=== PATIENT | male | born 1965 | race African-American/Black ===

== ENCOUNTER 2018-12-03 06:31 | Inpatient (IN) ==
--- NOTE | 2018-10-26 09:44 | Anesthesiology Consultation ---
Date of Service October 26, 2018 Assessment & Plan (1) Encounter for pre-operative examination: Chart Review Chart Review: Acceptable Risk for Surgery (pending surgeon-ordered UA) and Patient NOT seen in Pre Admission Testing History Surgery Operation Date: 12/03/18 07:15 Proposed Procedures p Left Total Shoulder Arthroplasty, Possible Posterior Augmented Glenoid - Trenton Jimenez MD Height/Weight Height: 6 ft 4 in Weight: 133.356 kg Allergies Allergy/AdvReac Type Severity Reaction Status Date / Time aspirin AdvReac Mild VOMITTING Verified 10/21/18 10:09 Medications Home Medications Medication Instructions Recorded Confirmed Last Taken amlodipine 10 mg PO DAILY 10/21/18 10/21/18 Unknown atorvastatin 10 mg PO DAILY 10/21/18 10/21/18 Unknown diclofenac sodium 75 mg PO BID PRN 10/21/18 10/21/18 Unknown ranitidine HCl 150 mg PO BID 10/21/18 10/21/18 Unknown Past Medical History Medical History GERD (gastroesophageal reflux disease) Hyperlipidemia Hypertension Obesity Osteoarthritis Past Surgical History Surgical History History of total hip arthroplasty Social History Smoking Status: Current every day smoker tobacco type: cigarettes Smoking End Date: 10 CIGS DAILY Hx Alcohol Use: No Hx Substance Use: No Testing Electrocardiogram Date: 10/11/18 SR with first degree AVB at 65bpm. NS STA. Chest X-Ray Date: 10/06/18 Findings: + NAD Laboratory Results 10/11/18 WBC 8.14 H/H 15.1/46.0 PLATELETS 334 SODIUM 139 POTASSIUM 4.5 CHLORIDE 105 CO2 31 BUN 9 CREATININE 0.82 GLUCOSE 113 HGBA1C 6.4% PT 10.3 PTT 27.1 INR 0.99
--- NOTE | 2018-11-17 14:35 | History & Physical Report ---
Date of Service November 17, 2018 Assessment & Plan (1) Osteoarthritis of left shoulder: Patient has end stage arthritis of his left shoulder. He has tried and failed conservative measures as above. He would like to proceed with surgical intervention. Risks, benefits and alternatives to surgery including but not limited to infection, DVT, pain, stiffness, need for revision surgery, damage to blood vessels, damage to nerves, PE, , were discussed with the patient and they wish to proceed. Plan will be for left total shoulder arthroplasty with possible posterior augmented glenoid. All questions answered and reassurance given. He will f/u post operatively. Osteoarthritis type: primary Qualified Code(s): M19.012 - Primary osteoarthritis, left shoulder History of Present Illness Chief Complaint: Left shoulder pain Primary Care Provider: JACQUELINE Betsy Patient is a 53 year old male with PMHx significant for HTN, high cholesterol, GERD, PENNY who presents with chronic left shoulder pain. He has failed conservative measures including NSAIDs and cortisone injections. He has significnat osteoarthritis of his left shoulder. Treatment options were discussed and he would like to proceed with surgical intervention. Patient denies headaches, sweats, fevers, chills, double vision, blurred vision, cough, sore throat, dysphagia, chest pain, sob, wheezing, n/v/d/c, numbness, tingling, fatigue, urinary symptoms, mood disorders. ROS positive for left shoulder pain and stiffness. Allergies Allergy/AdvReac Type Severity Reaction Status Date / Time aspirin AdvReac Mild VOMITTING Verified 10/21/18 10:09 Home Medications Home Medications Medication Instructions Recorded Confirmed Type amlodipine 10 mg PO DAILY 10/21/18 10/21/18 History atorvastatin 10 mg PO DAILY 10/21/18 10/21/18 History diclofenac sodium 75 mg PO BID PRN 10/21/18 10/21/18 History ranitidine HCl 150 mg PO BID 10/21/18 10/21/18 History Past Med/Surg History Medical History GERD (gastroesophageal reflux disease) Hyperlipidemia Hypertension Obesity Osteoarthritis Surgical History History of total hip arthroplasty Social History Current Living Situation: Other Current Living Situation Comment: [facility] Smoking Status: Current every day smoker Tobacco Type: cigarettes Smoking End Date: 10 CIGS DAILY Hx Alcohol Use: No Hx Substance Use: No Review of Systems All systems reviewed & are unremarkable except as noted in HPI & below Physical Exam Vital Signs (Past 24 Hours): 6'3" 290lbs, BP 128/82 Constitutional: well developed and well nourished; no acute distress Eyes: PERRL, conjunctivae normal, anicteric sclerae ENMT: external ear and nose normal, oropharynx normal Neck: trachea midline, no thyromegaly Respiratory: normal respiratory effort, lungs clear to auscultation Cardiovascular: RRR, no murmur, no edema Chest (Breasts): normal inspection/palpation of breasts Musculoskeletal: Left shoulder: Painful ROM actively. ER to neutral, abduction 0-45 degrees, FF 0-60 degrees. Crepitus noted with ROM. N/V status and sensation intact. Skin: no rashes, warm and dry Neurologic: patellar DTR's 2+ bilat, sensation intact Psychiatric: A+Ox3, euthymic affect Results & Data Diagnostic Findings Left shoulder radiographs: Significant degenerative changes left shoulder with [id number] glenohumeral joint, osteophyte formation and subchondral sclerosis
[~2018-12-03 06:31] MED LIST: ACETAMINOPHEN 500 MG TAB PO SCH; CEFAZOLIN 3000MG 65 ML IV SCH; CeleBREX 200 MG CAP PO SCH; FAMOTIDINE 20 MG TAB PO SCH; GABAPENTIN 300 MG x 3 PO SCH; LR 15ML/HR IV SCH; dexAMETHasone 4 MG TAB PO SCH
[2018-12-03] MEDS ORDERED: ROPIVACAINE 0.5% 5 MG/ML 30 ML VIAL ONE (06:35)
[2018-12-03] MEDS ORDERED: DEXAMETHASONE SOD INJ 4 MG/ML VIAL ONE ×2 (06:35→08:08)
--- NOTE | 2018-12-03 07:15 | History & Physical Bridge Note ---
Date of Service December 03, 2018 History & Physical Bridge Note I have examined the patient, reviewed the History & Physical and in the interval since the performance of the History & Physical I have noted the following changes of clinical significance: no changes noted
[2018-12-03] MEDS ORDERED: fentaNYL citrate 100 MCG/2 ML VIAL ONE ×3 (08:00→11:58)
[2018-12-03] MEDS ORDERED: MIDAZOLAM HCL 1 MG/ML 2ML VIAL ONE ×2 (08:00→08:55)
[2018-12-03] MEDS ORDERED: KETAMINE HCL INJ 50 MG/ML 10 ML VIAL ONE (08:01)
[2018-12-03] MEDS ORDERED: ONDANSETRON INJ 2 MG/ML 2 ML VIAL ONE (08:08)
[2018-12-03] MEDS ORDERED: GLYCOPYRROLATE 0.2 MG/ML VIAL ONE (08:08)
[2018-12-03] MEDS ORDERED: PROPOFOL IV EMULSION 10 MG/ML 20 ML VIAL IV ONE (08:08)
[2018-12-03] MEDS ORDERED: LIDOCAINE HCL 2% 2 ML VIAL/AMP(20MG/ML) INFIL ONE (08:08)
[2018-12-03] MEDS ORDERED: ROCURONIUM BROMIDE 10 MG/ML 5 ML VIAL ONE (08:08)
[2018-12-03] MEDS ORDERED: ePHEDrine sulfate 50 MG/ML AMP IV PRN (08:53)
[2018-12-03] MEDS ORDERED: ATROPINE SULFATE 0.1 MG/ML 10ML SYR IV PRN (08:53)
[2018-12-03] MEDS ORDERED: LIDOCAINE HCL 2% MPF (LOCAL) 5 ML VIAL INFIL ONE (08:55)
[2018-12-03] MEDS ORDERED: VANCOMYCIN HCL 1000MG/20ML VIAL ONE (09:18)
[2018-12-03] MEDS ORDERED: POVIDONE-IODINE OP SOLN 30 ML BTL ONE (09:18)
[2018-12-03] MEDS ORDERED: BACITRACIN INJ 50,000 UNIT VIAL ONE (09:18)
[2018-12-03] MEDS ORDERED: ROPIVACAINE 0.5% HCL/PF 150 MG, BUPIVACAINE 0.5% MPF 30 ML, EPINEPHrine 30MG/30ML (OR U... INFIL SCH (10:15)
[2018-12-03] MEDS ORDERED: EPINEPHrine HCL INJ 1 MG/ML 30ML ONE (11:36)
--- NOTE | 2018-12-03 12:40 | Operative Report ---
Post Operative Report Pre & Post Diagnosis Operation Date: 12/03/18 08:55 Pre-Op Diagnosis: Primary Osteoarthritis, Left shoulder Post-Op Diagnosis: Primary Osteoarthritis, Left shoulder same plus tear long head biceps tendon Procedure Operation Date: 12/03/18 08:55 Actual Procedures p Left Total Shoulder Arthroplasty with posterior augmented glenoid(Left), biceps tenodesis- Trenton Jimenez MD Surgeon Trenton Jimenez MD Cupola Man Te Gonzalez PA-C Estimated Blood Loss 100 Findings Consistent with Post-Op Diagnosis Specimens Bone and tissue Anesthesia Type General Regional Complications none Disposition Accompanied Patient To Recovery: No Disposition: Recovery Room Indications The patient is a 53-year-old male long-standing arthritic change in the left shoulder. Is [id number] glenohumeral joint with significant posterior eccentric wear. He is failed conservative measures including cortisone injection, nonsteroidal anti-inflammatories, rehab. We discussed various treatment measures and he wishes to proceed total shoulder arthroplasty. Description of Procedure Risks, benefits and alternatives to surgery including, but not limited to, infection DVT, pain, stiffness, need for revision surgery, failure to relieve all symptoms, damage to blood vessels, damage to nerves, risk of anesthesia were discussed with the patient and they wished to proceed. The patient was identified. Laterality was confirmed and marked. The patient received a preoperative antibiotic as well as an interscalene block. They were transferred to the operating room and placed in the supine position and induced into general endotracheal anesthesia per the anesthesia staff. The patient was then safely transferred to a slight beachchair position. The patient was secured in the Tenet positioner. All pressure points were well padded. The shoulder was prepped and draped in the usual sterile manner with ChloraPrep. The arm was secured in the Spider swann. I made a longitudinal incision just lateral to the coracoid, sharply incising through the skin and utilizing Bovie electrocautery to achieve hemostasis. I identified the cephalic vein and mobilized it laterally with the deltoid. I mobilize the pectoralis and mobilize this medially releasing a small portion of the upper border of the pec tendon to improve visualization. I then identified and mobilized the conjoined tendon. I identified the long head of the biceps tendon. The long head of the biceps tendon had significant tendinosis and tearing proximally. I performed an in situ biceps tenodesis with interrupted #2 FiberWire suture. I then released the subscapularis. I tagged this with interrupted 0 Ethibond suture for later repair. I pinned into place my humeral head version cutting guide and made my humeral head resection. Inferior osteophytes were removed with a rongeur. There were several loose bodies within the biceps tendon sheath that were removed. There was also a osseous body within the substance of the subscapularis medial to the coracoid. This was shelled out utilizing combination dissection sutures and Bovie. I then sequentially reamed and sequentially broached. I then placed the trial humeral stem into the shoulder. I placed retractors around the glenoid and then excised the residual biceps tendon stump and glenoid labrum. I elevated the soft tissues and the inferior aspect of the glenoid to improve exposure and released tissues circumferentially. There were several loose bodies posteriorly that were removed. I then positioned and drilled for the central post. I then drilled for the 3 peripheral pegs. I placed a trial glenoid into position and confirmed the size of the implant. I then placed epinephrine-soaked sponges into the peg holes. The central caged post was bone grafted with bone taken from the humeral head. The peripheral peg holes were cemented with Palacos G cement. The definitive polyethylene was then impacted into place. I then removed the trial humeral stem . I then drilled holes in my subscapularis repair. I placed a total of 3 #2 FiberWire sutures through the drill holes and placed them in a looped fashion around the stem. I then placed the definitive humeral stem. I trialed off of the definitive stem. The definitive components used were [employer] Equinox: Preserved short humeral press-fit stem: 10 Glenoid: Extra-large left with 8 degree posterior augmentation Replicator plate: 4.5 Humeral head: 50 mm expanded I thoroughly irrigated the wound. Deep tissues were anesthetized with an orthomix solution. I then locked replicator plate into position with a torque limiting screw. I then impacted the definitive humeral head into position. I then reduced the shoulder. There was good range of motion and good stability after the reduction. I used the #2 FiberWire suture for a medial row repair of the subscapularis. I then performed a lateral row repair with a running #5 FiberWire suture. The rotator interval was closed with interrupted #2 FiberWire suture. The wound was again thoroughly irrigated and a Betadine soak was performed. The deltopectoral interval was closed with interrupted #1 Ethibond suture. The subcutaneous tissue was closed with interrupted 2-0 Vicryl suture. The skin was closed with clarence. A sterile dressing was applied. A sling was placed. All needle and sponge counts were correct at the end of the procedure. The patient was transferred to the PACU in stable condition without apparent complication. The PA-C was necessary for assistance with procedure for assistance in positioning, prepping, draping, retraction and closure. I attest to the content of the Intraoperative Record and any orders documented therein. Any exceptions are noted below.
--- NOTE | 2018-12-03 14:05 | XRay Report ---
XR shoulder LT min 2V routine HISTORY: 53 years-old Male Post shoulder surgery left shoulder arthroplasty COMPARISON: None available TECHNIQUE: 2 views of the left shoulder FINDINGS: Left shoulder arthroplasty demonstrates satisfactory alignment. No acute fracture, dislocation or ret ained foreign body definitively seen. Overlying skin clarence are noted along with expected postsurgic al soft tissue swelling and deep tissue air. Left lung base opacities are noted. IMPRESSION: Satisfactory alignment of left shoulder arthroplasty. The above report was generated using voice recognition software. It may contain grammatical, syntax o r spelling errors. Electronically signed by: Edu Guo M.D. 12/03/2018 2:04 PM
--- NOTE | 2018-12-03 14:48 | Anesthesiology Progress Note ---
Date of Service December 03, 2018 Anesthesia Post Procedure Vital Signs Vital Signs: Temp Pulse Resp BP Pulse Ox 12/03/18 14:35 88 23 151/90 H 94 12/03/18 14:26 91 H 25 H 148/84 H 96 12/03/18 14:15 91 H 23 130/86 94 12/03/18 14:05 100 H 23 157/96 H 96 12/03/18 13:55 99 H 23 130/87 93 12/03/18 13:45 82 23 123/92 92 12/03/18 13:35 81 23 127/79 94 12/03/18 13:25 80 21 105/79 94 12/03/18 13:15 36.5 C 83 23 112/75 94 12/03/18 06:56 36.7 C 78 20 145/94 H 97 Pain Intensity Left Shoulder: Pain Intensity: 10 Transfer of Care Handoff Completed per policy Notes Mental Status: alert / awake / arousable and participated in evaluation Patient Amnestic to Procedure: Yes Nausea / Vomiting: adequately controlled Pain: adequately controlled Airway Patency, RR, SpO2: stable & adequate BP & HR: stable & adequate Hydration State: stable & adequate Anesthetic Complications: no major complications apparent
[2018-12-03] MEDS ORDERED: BISACODYL 10 MG SUPP PR PRN (15:32)
[2018-12-03] MEDS ORDERED: NALOXONE HCL 0.4 MG/1 ML VIAL/CARP IV PRN (15:32)
[2018-12-03] MEDS ORDERED: TAMSULOSIN HCL 0.4 MG CAP PO PRN (15:32)
[2018-12-03] MEDS ORDERED: MAGNESIUM HYDROXIDE SUSP 30 ML UDC PO PRN (15:32)
[2018-12-03] MEDS ORDERED: ONDANSETRON INJ 2 MG/ML 2 ML VIAL IV PRN (15:32)
[2018-12-03] MEDS ORDERED: METOCLOPRAMIDE HCL INJ 5 MG/ML 2 ML VIAL IV PRN (15:32)
[2018-12-03] MEDS: ACETAMINOPHEN 500 MG TAB PO SCH ×2 (16:20→21:19)
[2018-12-03] MEDS: SODIUM CHLORIDE 0.9% 1000ML 1,000 ML IV SCH (16:21)
[2018-12-03] MEDS: CEFAZOLIN 2000MG 2,000 MG/15 ML SYR IV SCH (18:15)
[2018-12-03] MEDS: OXYCODONE HCL IR 5 MG TAB (IMMEDIATE RELEASE) PO PRN (21:16)
[2018-12-03] MEDS: DOCUSATE SODIUM 100 MG CAP PO SCH (21:19)
[2018-12-03] MEDS: SENNA 8.6 MG TAB PO SCH (21:19)
[2018-12-03] MEDS: HYDROmorphone INJ 0.5 MG/0.5 ML SYR IV PRN (23:12)
[2018-12-04] MEDS: CEFAZOLIN 2000MG 2,000 MG/15 ML SYR IV SCH (01:49)
[2018-12-04] MEDS: SODIUM CHLORIDE 0.9% 1000ML 1,000 ML IV SCH (01:49)
[2018-12-04] MEDS: OXYCODONE HCL IR 5 MG TAB (IMMEDIATE RELEASE) PO PRN ×5 (03:36→22:42)
[2018-12-04] MEDS: ACETAMINOPHEN 500 MG TAB PO SCH ×3 (05:49→20:39)
[2018-12-04] MEDS: HYDROmorphone INJ 0.5 MG/0.5 ML SYR IV PRN ×5 (05:50→23:35)
[2018-12-04 06:15] LABS: Hematocrit (blood only) 40.3 % (42-52); Hemoglobin 13.2 g/dL (14.0-18.0); Immature Granulocytes # (auto) 0.05 K/uL (0.00-0.02); Immature Granulocytes % (auto) 0.3 %; Lymphocytes # (auto) 1.27 K/uL (1.2-3.4); Lymphocytes % (auto) 7.4 %; Mean Corpuscular Hgb Conc 32.8 g/dL (32-36); Mean Corpuscular Volume 91.8 fL (80-100); Mean Platelet Volume 10.3 fL (7.4-10.4); Monocytes # (auto) 1.18 K/uL (0.11-0.59); Monocytes % (auto) 6.9 %; Neutrophils # (auto) 14.59 K/uL (1.4-6.5); Neutrophils % (auto) 85.4 %; Platelet Count 283 K/uL (130-400); RDW Coefficient of Variation 13.1 % (11.5-14.5); RDW Standard Deviation 44.2 fL (36.4-46.3); Red Blood Count 4.39 M/uL (4.7-6.1); White Blood Count 17.09 K/uL (4.8-10.8)
[2018-12-04 06:38] LABS: BUN Creatinine Ratio 14.8 (10-20); Creatinine Clr Calc Pharmacy 126.3 ml/min; Est GFR (African American) 97.5; Est GFR (Non-African American) 84.1; Potassium 4.8 mmol/L (3.5-5.1)
--- NOTE | 2018-12-04 08:57 | Orthopedic Progress Note ---
Date of Service December 04, 2018 Assessment & Plan (1) Osteoarthritis of left shoulder: PT/OT Pain control Plan for [facility] to [facility]. Subjective POD#1 Left TSA. He notes pain today. Review of Systems Cardiovascular: no chest pain, no dyspnea, no lightheadedness and no calf pain Physical Exam Physical Exam: Digits mobile, NVI. Calves soft, non tender. Dressing in place to left shoulder. Incision clean dry intact Results & Data Vital Signs (Past 12 Hours) Vital Signs Temp Pulse Resp BP Pulse Ox 12/04/18 07:00 36.7 C 74 16 135/79 95 12/04/18 03:30 36.8 C 83 18 149/72 H 93 12/03/18 23:00 36.9 C 90 18 138/81 95 (1) Osteoarthritis of left shoulder Osteoarthritis type: primary Qualified Code(s): M19.012 - Primary osteoarthritis, left shoulder
--- NOTE | 2018-12-04 10:05 | Consultation ---
Date of Consultation December 04, 2018 Assessment & Plan (1) Chest pain: - Admitted under orthopedics team - Multiple cardiac risk factors including HTN, HLD, current tobacco use, obesity make him a higher risk patient. It would be appropriate to keep the patient overnight and rule out cardiac involvement. - Transfer to tele - Trend cardiac biomarkers, initial set was negative, next set due at 2 PM - EKG reviewed as above showing possible T wave changes in the lateral leads. EKG from October reviewed but does not appear to have had ST wave changes at that time. - Check 2 D echo - If negative enzymes can consider a stress test tomorrow morning. - Patient is not on form of anticoagulation s/p surgery: Order CTA chest for PE r/o, continuous pulse ox for now as he is currently on 2 L of O2. Patient denies any significant shortness of breath. But he has not been up ambulating due to shackles attached to bed. - Nitro paste as pt not currently cp free, BP stable - c/o lightheadedness may be secondary to narcotic use, monitor. - PT/OT consulted (2) HTN (hypertension): - Cont amlodipine 10 mg daily (3) HLD (hyperlipidemia): - Cont atorvastatin 10 mg daily (4) Osteoarthritis of left shoulder: - S/p L shoulder repair, POD #1 - pain control, bowel regimen per primary team (5) Osteoarthritis of right hip: -Stable, hx of total right hip replacement 2 years ago. (6) Obesity (BMI 30-39.9): - Diet and exercise regimen will need to be discussed with the patient upon discharge. Encouraged more active lifestyle at bedside. (7) Tobacco use: -Patient has used tobacco x20 years, currently smoking ~1/2 pack/day. On January 10, [facility] is making their facility and no smoking facility. (8) DVT prophylaxis: -Teds, SCDs Thank you for involving medicine in the care of Mr. Cabral, we will follow along. Supervising Physician Co-Signing Physician Notes PA Supervision Note: I personally saw and examined the patient. I verified all banegas points and agree with ADAM To with the following exceptions and/or additions: Patient is postop day 1 from left shoulder surgery, had substernal chest achiness there was initially an 8 out of 10 in severity and then on its own went down to a 6 out of 10. It is nonradiating, not associated with diaphoresis or nausea, no associated shortness of breath. He was at rest when it came on. He is also having severe left shoulder pain and states that the pain medicine he is on is not helping. He has no history of cardiac issues but does have risk factors of smoking hypertension as above. He also just had surgery. He denies calf tenderness or swelling. No previous history of venous thromboembolism. I came back to check on him 4 hours later and he was still having the same chest pain despite serially negative troponins and normal studies as below History reviewed as above ROS as above Vitals reviewed Gen: AAOx3, NAD, well-developed, well-nourished, obese HEENT: Anicteric sclerae, EOMI CV: RRR no mgr nl S1S2, chest/sternum is nontender to palpation Pulm: CTAB no wcr Abd: +BS soft NT ND no masses or hernias Ext: No edema, 2+ DP pulses, left upper extremity in sling with bulky dressing in place over left shoulder Skin: No rashes Echocardiogram without wall motion of normalities, normal LVEF ECG here shows normal sinus rhythm, lateral leads with flattened T waves not significantly changed from previous preoperative ECG CT angiogram of the chest negative for pulmonary embolism or pneumonia-read with small left basilar infiltrate but is likely atelectasis Troponin negative x2, CBC and BMP otherwise within normal limits except for mildly elevated blood glucose likely from corticosteroids 53-year-old male with history of hypertension, hyperlipidemia, OA, current smoker, obesity, here status post shoulder surgery, now postop day 1, here with atypical substernal chest pain. Acute coronary syndrome is ruled out at this time based on serially negative enzymes despite constant pain now all day long, echo without wall motion abnormalities PE ruled out Likely musculoskeletal or GI in nature -Add on Protonix to his ranitidine twice daily -Increase Dilaudid to 1 mg as needed for pain which will also help his left shoulder pain Continue monitoring on telemetry -Can discontinue Nitropaste at this time -Continue to follow History of Present Illness Requesting Physician: Dr. Jimenez Reason for Consultation: Chest pain Attending Physician: Trenton Jimenez MD History of Present Illness This is a 53 yo incarcerated M with PMHx of HTN, HLD, smoking 1/2 ppd x 20 years, obesity with BMI of 35.8, sedentary lifestyle due to chronic hip and shoulder pain, who presented for an elective left total shoulder replacement completed by Dr. Jimenez on 12/03/2018. The patient reports that his shoulder pain today has been rated as a 10/10. He has taken as needed oxycodone and Dilaudid today for pain control, his last dose of oxycodone was 10 mg p.o. at ~8 AM, Dilaudid 0.5 mg IV was taken at 5:50AM. The patient reported onset of intermittent lightheadedness between 8 and 9 AM. Patient also reported acute onset of substernal heaviness this morning while sitting in bed. He has only been up ambulating to urinate once around 6 AM. The patient reports that the pain was initially rated as an 8, has since subsided to approximately a 5 or 6 but is still present. He denies any history of having heart issues in the past. Denies other family history of cardiac events, HTN, HLD, diabetes, stroke. Initial troponin drawn and is negative. EKG today was reviewed showing a possible T wave inversion in the lateral leads. His last EKG was from October 11, 2018 and was NSR with a first-degree AV block however no ST wave changes. Allergies Allergy/AdvReac Type Severity Reaction Status Date / Time aspirin AdvReac Mild VOMITTING Verified 10/21/18 10:09 Home Medications Home Medications Medication Instructions Recorded Confirmed Type amlodipine 10 mg PO DAILY 10/21/18 10/21/18 History atorvastatin 10 mg PO DAILY 10/21/18 10/21/18 History diclofenac sodium 75 mg PO BID PRN 10/21/18 10/21/18 History ranitidine HCl 150 mg PO BID 10/21/18 10/21/18 History Patient History Medical History Tobacco use Obesity (BMI 30-39.9) HLD (hyperlipidemia) HTN (hypertension) Chest pain Osteoarthritis of left shoulder Osteoarthritis of right hip GERD (gastroesophageal reflux disease) Hyperlipidemia Hypertension Osteoarthritis Obesity Surgical History History of total hip arthroplasty Family History Other Family history non-contributory Social History Communication Ability: Effective 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 Beliefs That Will Affect Care: None Current Living Situation: Other Current Living Situation Comment: inmate Feels Safe at Home: No Smoking Status: Current every day smoker Tobacco Type: cigarettes Cigarettes Per Day: 5 Do You Dip or Chew Tobacco: No Smoking End Date: 10 CIGS DAILY Hx Alcohol Use: Yes (formerly) Alcohol type: beer Hx Substance Use: Yes substance use type: marijuana Last Used Substance: Unknown Review of Systems Review of Systems: Constitutional: No fever, sweats or chills, + lightheadedness Eyes: No diplopia, no worsening or blurred vision ENT: normal hearing, no trouble swallowing Respiratory: No cough, sputum, dyspnea at rest or on exertion Cardiovascular: + substernal heaviness per HPI. No radiation of pain. No palpitations Abdomen: No pain, nausea, vomiting, diarrhea or constipation Musculoskeletal: + L shoulder pain, no other joint pain, calf pain, or swelling Neurologic: No weakness, numbness/tingling, or balance problems Psychiatric: No anxiety or depression Skin: No rash or itch Physical Exam Physical Exam: General: awake, alert, no apparent distress, Head: Normocephalic, atraumatic ENT: PERRL, EOMI, no pharyngeal exudate, mucous membranes moist Chest: on 2L via NC with sats = 97%, faint expiratory wheeze, left chest wall not palpated due to shoulder surgery, nonreproducible on right. Cardiac: Regular rate and rhythm, no murmur, no JVD, normal peripheral pulses, good capillary refill Abdominal: NABS x 4 quadrants, soft, nontender to palpation, no rebound, guarding or tenderness Extremities: L shoulder bandage c/d/i, in sling, no surrounding erythema or edema, Otherwise normal inspection, no peripheral edema or erythema, calfs nontender to palpation Psych: Normal mood and affect Neuro: AAO x 3, no motor deficits, speech is clear, no peripheral sensory deficits Results & Data Vital Signs (Past 12 Hours) Vital Signs Temp Pulse Resp BP Pulse Ox 12/04/18 09:01 91 H 20 157/94 H 97 12/04/18 07:00 36.7 C 74 16 135/79 95 12/04/18 03:30 36.8 C 83 18 149/72 H 93 12/03/18 23:00 36.9 C 90 18 138/81 95 (1) Osteoarthritis of left shoulder Osteoarthritis type: primary Qualified Code(s): M19.012 - Primary osteoarthritis, left shoulder
[2018-12-04] MEDS: AMLODIPINE BESYLATE 5 MG TAB PO SCH (10:19)
[2018-12-04] MEDS: ATORVASTATIN 10 MG TAB PO SCH (10:20)
[2018-12-04] MEDS: DOCUSATE SODIUM 100 MG CAP PO SCH ×2 (10:21→20:39)
[2018-12-04] MEDS: MULTIVITAMIN TAB PO SCH (10:21)
--- NOTE | 2018-12-04 11:30 | Anesthesiology Progress Note ---
Date of Service December 04, 2018 Anesthesia Post Procedure Vital Signs Vital Signs: Temp Pulse Resp BP Pulse Ox 12/04/18 09:01 91 H 20 157/94 H 97 12/04/18 07:00 36.7 C 74 16 135/79 95 12/04/18 03:30 36.8 C 83 18 149/72 H 93 12/03/18 23:00 36.9 C 90 18 138/81 95 12/03/18 20:53 36.7 C 91 H 16 141/76 H 94 12/03/18 18:12 36.9 C 87 16 145/80 H 95 12/03/18 17:14 36.7 C 91 H 16 157/118 H 94 12/03/18 16:18 36.7 C 88 16 138/78 95 12/03/18 15:28 36.7 C 100 H 16 145/78 H 95 12/03/18 15:15 36.7 C 95 H 20 141/86 H 93 12/03/18 15:07 90 24 128/81 94 12/03/18 14:55 90 24 140/89 94 12/03/18 14:47 91 H 25 H 121/84 94 12/03/18 14:35 88 23 151/90 H 94 12/03/18 14:26 91 H 25 H 148/84 H 96 12/03/18 14:15 91 H 23 130/86 94 12/03/18 14:05 100 H 23 157/96 H 96 12/03/18 13:55 99 H 23 130/87 93 12/03/18 13:45 82 23 123/92 92 12/03/18 13:35 81 23 127/79 94 12/03/18 13:25 80 21 105/79 94 12/03/18 13:15 36.5 C 83 23 112/75 94 Pain Intensity Left Shoulder: Pain Intensity: 10 Transfer of Care Handoff Completed per policy Notes Mental Status: alert / awake / arousable and participated in evaluation Patient Amnestic to Procedure: Yes Nausea / Vomiting: adequately controlled Pain: improving with treatment (pt reports pain, does not exhibit signs of pain, appears comfortable in bed, reports numbness in left upper extremity) Airway Patency, RR, SpO2: stable & adequate BP & HR: stable & adequate Hydration State: stable & adequate Anesthetic Complications: no major complications apparent
[2018-12-04] MEDS ORDERED: OPTIRAY 320 125ml IV PRN (11:58)
[2018-12-04] MEDS ORDERED: NITROGLYCERIN 2% OINTMENT 30GM TUBE EXT SCH (12:00)
--- NOTE | 2018-12-04 12:08 | CT Scan Report ---
CT angio chest PE protocol CT DOSE: 959.42 mGy.cm HISTORY: Chest pain. Dyspnea. PE TECHNIQUE: Multiaxial CT images of the chest were performed following the intravenous administration of contrast to evaluate the pulmonary arteries. Maximal intensity projection images were also obtaine d. A dose lowering technique was utilized adhering to the principles of ALARA. COMPARISON STUDY: None. FINDINGS: There is a normal caliber thoracic aorta with no evidence for dissection. There is no evide nce for pulmonary embolus. No pleural effusions. No pneumothorax. The liver and spleen are unremarkab le. No mediastinal or hilar lymphadenopathy. The central airways are patent. Focal parenchymal infilt rate left base. Mild right basilar atelectasis. IMPRESSION: 1. Study is negative for pulmonary embolus. 2. Small parenchymal infiltrate left base. 3. Minimal basilar atelectasis right lung base. 4. Postoperative changes to the region of the left shoulder due to recent total arthroplasty. The above report was generated using voice recognition software. It may contain grammatical, syntax or spelling errors. Electronically signed by: Frank Doyle M.D. 12/04/2018 12:05 PM
[2018-12-04] MEDS ORDERED: PANTOprazole 40 MG TAB PO STA (17:29)
[2018-12-04] MEDS: SENNA 8.6 MG TAB PO SCH (20:39)
[2018-12-05] MEDS: HYDROmorphone INJ 0.5 MG/0.5 ML SYR IV PRN ×3 (03:34→11:35)
[2018-12-05] MEDS: ACETAMINOPHEN 500 MG TAB PO SCH ×3 (06:17→21:30)
[2018-12-05 07:17] LABS: Basophils # (auto) 0.05 K/uL (0-0.2); Basophils % (auto) 0.4 %; Eosinophils # (auto) 0.12 K/uL (0-0.5); Hemoglobin 12.5 g/dL (14.0-18.0); Immature Granulocytes # (auto) 0.03 K/uL (0.00-0.02); Immature Granulocytes % (auto) 0.2 %; Lymphocytes # (auto) 3.22 K/uL (1.2-3.4); Lymphocytes % (auto) 26.3 %; Mean Corpuscular Hgb Conc 33.8 g/dL (32-36); Mean Corpuscular Volume 90.2 fL (80-100); Mean Platelet Volume 9.4 fL (7.4-10.4); Monocytes % (auto) 7.3 %; Neutrophils # (auto) 7.93 K/uL (1.4-6.5); Neutrophils % (auto) 64.8 %; Platelet Count 255 K/uL (130-400); RDW Coefficient of Variation 13.4 % (11.5-14.5); RDW Standard Deviation 44.4 fL (36.4-46.3); White Blood Count 12.25 K/uL (4.8-10.8)
[2018-12-05] MEDS: MULTIVITAMIN TAB PO SCH (07:34)
[2018-12-05] MEDS: DOCUSATE SODIUM 100 MG CAP PO SCH ×2 (07:35→21:31)
[2018-12-05] MEDS: AMLODIPINE BESYLATE 5 MG TAB PO SCH (07:35)
[2018-12-05] MEDS: ATORVASTATIN 10 MG TAB PO SCH (07:35)
[2018-12-05] MEDS: PANTOprazole 40 MG TAB PO SCH (07:35)
[2018-12-05 07:59] LABS: BUN Creatinine Ratio 15.4 (10-20); Calcium 8.4 mg/dl (8.5-10.1); Creatinine Clr Calc Pharmacy 175.3 ml/min; Est GFR (African American) 122.2; Est GFR (Non-African American) 105.5; Potassium 3.6 mmol/L (3.5-5.1)
--- NOTE | 2018-12-05 11:55 | Orthopedic Progress Note ---
Date of Service December 05, 2018 Assessment & Plan (1) Osteoarthritis of left shoulder: Will plan for [facility] back to [facility] when cleared with medicine regarding chest pain. PT/OT Pain control: has dilaudid per medicine for pain control Subjective patient notes chest pain is improving. He still has some. Physical Exam Physical Exam: left shoulder dressing clean dry intact. Fingers mobile. NVI Results & Data Vital Signs (Past 12 Hours) Vital Signs Temp Pulse Pulse Resp BP Pulse Ox 12/05/18 08:15 36.7 C 77 20 143/91 H 91 12/05/18 07:59 75 12/05/18 04:37 36.6 C 76 18 145/88 H 90 (1) Osteoarthritis of left shoulder Osteoarthritis type: primary Qualified Code(s): M19.012 - Primary osteoar thritis, left shoulder
[2018-12-05] MEDS ORDERED: KETOROLAC 30 MG/ML VIAL IV ONE (13:01)
[2018-12-05] MEDS ORDERED: KETOROLAC 30 MG/ML VIAL IV PRN (13:01)
--- NOTE | 2018-12-05 13:03 | Hospitalist Progress Note ---
Date of Service December 05, 2018 Assessment & Plan (1) Chest pain: 53-year-old male with history of hypertension, hyperlipidemia, OA, current smoker, obesity, here status post shoulder surgery. Developed atypical chest pain on AM of 12/04 that was substernal, achy in nature,initially an 8 out of 10 in severity and then on its own went down to a 6 out of 10. It is nonradiating, not associated with diaphoresis or nausea, no associated shortness of breath. He was at rest when it came on. Chest pain now resolved with addition of protonix. He has no history of cardiac issues but does have risk factors of smoking hypertension as above. He denies calf tenderness or swelling. No previous history of venous thromboembolism. Echocardiogram without wall motion of normalities, normal LVEF ECG here shows normal sinus rhythm, lateral leads with flattened T waves not significantly changed from previous preoperative ECG CT angiogram of the chest negative for pulmonary embolism or pneumonia-read with small left basilar infiltrate but is likely atelectasis Troponin negative x3, CBC and BMP otherwise within normal limits except for mildly elevated blood glucose likely from corticosteroids Acute coronary syndrome is ruled out at this time based on serially negative enzymes despite constant pain all day long, echo without wall motion abnormalities PE ruled out Likely musculoskeletal or GI in nature. Now resolved with PPI -continue Protonix added to his ranitidine twice daily for while inpatient -no further workup or stress test necessary (2) HTN (hypertension): Blood pressures acceptable - Cont amlodipine 10 mg daily (3) HLD (hyperlipidemia): - Cont atorvastatin 10 mg daily (4) Osteoarthritis of left shoulder: - S/p L shoulder repair, POD #2 - pain control-add toradol today, increase frequency of IV dilaudid to q3 hours Of note, he will not be able to get any opioids for pain when he returns to the [facility]-only acetaminophen and NSAIDs-therefore, made recommendation to Ortho PA to keep him for another day for improved pain control prior to discharge -continue bowel regimen (5) Osteoarthritis of right hip: -Stable, hx of total right hip replacement 2 years ago. (6) Obesity (BMI 30-39.9): - Diet and exercise regimen will need to be discussed with the patient upon discharge. Encouraged more active lifestyle at bedside. (7) Tobacco use: -Patient has used tobacco x20 years, currently smoking ~1/2 pack/day. On January 10, [facility] is making their facility and no smoking facility. (8) Lightheadedness: pt continues to report lightheadedness that is worse with walking. Studies all negative as above. Orthostatic BPs here actually show BP to go higher with standing. No focal neuro deficits Hgb without significant drop, lytes and renal function normal Most likely secondary to side effect from opioid medication -supportive care -no further testing needed (9) DVT prophylaxis: -Teds, SCDs, would add Lovenox as is not very mobile given he is handcuffed to the bed Dispo-stable for transfer to medical/surgical floor, likely dc to [facility] tomorrow as per Ortho team Hospitalist service will sign off at this time as pt is medically stable. Subjective Pt reports chest pain is completely gone. Still feeling lightheaded and "woozy" with standing up. Orthostatics negative. Feels like O2 helps him feel better. Not hypoxic. Still reports having 10/10 pain in his left shoulder and Dilaudid q4 hours is not lasting long enough. Reports he has not received ice to his shoulder since yesterday. He is eating and drinking, making urine, but has not moved his bowels since surgery. Tele with NSR, 1st degree AV block, rates 60-70s. I discussed his case with the Ortho PA Linnea today. Review of Systems Review of Systems: All systems reviewed & are unremarkable except as noted in HPI & below Physical Exam Constitutional: WD/WN, vitals as above Eyes: PERRL, conjunctivae normal, anicteric sclerae ENMT: external ear and nose normal, oropharynx normal Neck: trachea midline, no thyromegaly Respiratory: normal respiratory effort, lungs clear to auscultation Cardiovascular: RRR, no murmur, no edema Gastrointestinal (Abdomen): normal bowel sounds, soft, nontender, no hepatosplenomegaly Musculoskeletal: Extremities: + extremities abnormal to inspection (LUE in shoulder sling), no cyanosis and no clubbing Skin: no rashes, warm and dry Neurologic: moves all extremities and awake; no focal motor deficits Psychiatric: A+Ox3, euthymic affect Results & Data Vital Signs (Past 12 Hours) Vital Signs Temp Pulse Pulse Resp BP Pulse Ox 12/05/18 08:15 36.7 C 77 20 143/91 H 91 05/26/19 07:59 75 12/05/18 04:37 36.6 C 76 18 145/88 H 90 Laboratory Results 12/05/18 12/05/18 Range/Units 07:06 07:06 WBC 12.25 H (4.8-10.8) K/uL RBC 4.10 L (4.7-6.1) M/uL Hgb 12.5 L (14.0-18.0) g/dL Hct 37.0 L (42-52) % MCV 90.2 (80-100) fL MCH 30.5 (25-34) pg MCHC 33.8 (32-36) g/dL RDW Std Deviation 44.4 (36.4-46.3) fL RDW Coeff of Rudolph 13.4 (11.5-14.5) % Plt Count 255 (130-400) K/uL MPV 9.4 (7.4-10.4) fL Immature Gran % (Auto) 0.2 % Neut % (Auto) 64.8 % Lymph % (Auto) 26.3 % [place] % (Auto) 7.3 % Eos % (Auto) 1.0 % Baso % (Auto) 0.4 % Immature Gran # (Auto) 0.03 H (0.00-0.02) K/uL Neut # (Auto) 7.93 H (1.4-6.5) K/uL Lymph # (Auto) 3.22 (1.2-3.4) K/uL [place] # (Auto) 0.90 H (0.11-0.59) K/uL Eos # (Auto) 0.12 (0-0.5) K/uL Baso # (Auto) 0.05 (0-0.2) K/uL Sodium 137 (136-145) mmol/L Potassium 3.6 D (3.5-5.1) mmol/L Chloride 104 (98-107) mmol/L Carbon Dioxide 28 (21-32) mmol/L Anion Gap 5.0 (3-11) BUN 12 (7-18) mg/dl Creatinine 0.75 (0.6-1.4) mg/dl Est Cr Clr Drug Dosing 175.3 ml/min Est GFR ( Amer) 122.2 Est GFR (Non-Af Amer) 105.5 BUN/Creatinine Ratio 15.4 (10-20) Glucose 139 H (70-99) mg/dl Calcium 8.4 L (8.5-10.1) mg/dl (1) Osteoarthritis of left shoulder Osteoarthritis type: primary Qualified Code(s): M19.012 - Primary osteoarthritis, left shoulder
[2018-12-05] MEDS: HYDROmorphone INJ 1 MG/ML SYRINGE IV PRN ×3 (15:23→21:24)
[2018-12-05] MEDS: SENNA 8.6 MG TAB PO SCH (21:29)
[2018-12-06] MEDS: OXYCODONE HCL IR 5 MG TAB (IMMEDIATE RELEASE) PO PRN ×3 (00:15→10:46)
[2018-12-06 06:24] LABS: Prothrombin Time 9.9 Seconds (9.0-12.0)
[2018-12-06] MEDS: ACETAMINOPHEN 500 MG TAB PO SCH (06:28)
[2018-12-06] MEDS: HYDROmorphone INJ 1 MG/ML SYRINGE IV PRN (08:29)
[2018-12-06] MEDS: DOCUSATE SODIUM 100 MG CAP PO SCH (08:32)
[2018-12-06] MEDS: MULTIVITAMIN TAB PO SCH (08:33)
[2018-12-06] MEDS: ATORVASTATIN 10 MG TAB PO SCH (08:33)
[2018-12-06] MEDS: AMLODIPINE BESYLATE 5 MG TAB PO SCH (08:33)
[2018-12-06] MEDS: PANTOprazole 40 MG TAB PO SCH (08:34)
[2018-12-06] MEDS ORDERED: ENOXAPARIN INJ 40 MG/0.4 ML SYR SQ SCH (09:00)
--- NOTE | 2018-12-06 09:59 | Orthopedic Progress Note ---
Date of Service December 06, 2018 Assessment & Plan (1) Osteoarthritis of left shoulder: Will plan for discharge back to long term today, he is requesting to be discharged as he does feel better PT/OT Pain control: improving Subjective patient notes chest pain is better since starting ranintidine. Shoulder pain is improving. Physical Exam Physical Exam: incision clean dry intact. Fingers mobile. NVI Results & Data Vital Signs (Past 12 Hours) Vital Signs Temp Pulse Resp BP Pulse Ox 12/06/18 08:27 36.8 C 97 H 18 147/82 H 93 12/05/18 23:20 37 C 83 18 136/89 93 (1) Osteoarthritis of left shoulder Osteoarthritis type: primary Qualified Code(s): M19.012 - Primary osteoarthritis, left shoulder
--- NOTE | 2018-12-06 21:43 | Discharge Summary ---
Date of Service December 06, 2018 Admission HPI Per Admitting Provider Patient is a 53 year old male with PMHx significant for HTN, high cholesterol, GERD, PENNY who presents with chronic left shoulder pain. He has failed conservative measures including NSAIDs and cortisone injections. He has significnat osteoarthritis of his left shoulder. Treatment options were discussed and he would like to proceed with surgical intervention. Patient denies headaches, sweats, fevers, chills, double vision, blurred vision, cough, sore throat, dysphagia, chest pain, sob, wheezing, n/v/d/c, numbness, tingling, fatigue, urinary symptoms, mood disorders. ROS positive for left shoulder pain and stiffness. Admission Exam Per Admitting Provider Vital Signs (Past 24 Hours): 6'3" 290lbs, BP 128/82 Constitutional: well developed and well nourished; no acute distress Eyes: PERRL, conjunctivae normal, anicteric sclerae ENMT: external ear and nose normal, oropharynx normal Neck: trachea midline, no thyromegaly Respiratory: normal respiratory effort, lungs clear to auscultation Cardiovascular: RRR, no murmur, no edema Chest (Breasts): normal inspection/palpation of breasts Musculoskeletal: Left shoulder: Painful ROM actively. ER to neutral, abduction 0-45 degrees, FF 0-60 degrees. Crepitus noted with ROM. N/V status and sensation intact. Skin: no rashes, warm and dry Neurologic: patellar DTR's 2+ bilat, sensation intact Psychiatric: A+Ox3, euthymic affect Principal Diagnosis Left shoulder osteoarthritis, chest pain Discharge Exam Constitutional well developed and well nourished; no acute distress Eyes PERRL, conjunctivae normal, anicteric sclerae ENMT external ear and nose normal, oropharynx normal Neck trachea midline, no thyromegaly Respiratory normal respiratory effort, lungs clear to auscultation Cardiovascular RRR, no murmur, no edema Chest (Breasts) normal inspection/palpation of breasts Skin no rashes, warm and dry Neurologic patellar DTR's 2+ bilat, sensation intact Psychiatric A+Ox3, euthymic affect Discharge Data Allergies Allergy/AdvReac Type Severity Reaction Status Date / Time aspirin AdvReac Mild VOMITTING Verified 10/21/18 10:09 Consultations 12/03/18 15:32 Consult Case Management - Discharge Planning Routine 12/04/18 09:15 Consult Hospitalist Stat Procedures Performed Operation Date: 12/03/18 08:55 Actual Procedures p Left Total Shoulder Arthroplasty with posterior augmented glenoid(Left) - Trenton Jimenez MD Ordered Studies 12/03/18 05:00 US - OR guided needle placemen Routine 12/04/18 11:11 CT angio chest PE protocol Stat Hospital Course (1) Osteoarthritis of left shoulder: Patient presented for same day admission following left total shoulder arthroplasty on 12/03/18. He tolerated procedure well. On POD#1 patient had onset of substernal chest pain. Dr. Alyssa Mera of medicine service was consulted for evaluation. He underwent a cardiac workup. EKG showed questionable ST changes, Echo was performed and was unremarkable, serial troponin's were negative. By POD#2 his chest pain has resolved with the addition of a PPI. Post- operatively, labs remained stable- lowest hemoglobin recorded: 12.5. Pain was controlled in the hospital with prn medications, however patient was kept a third night prior to discharge to aid in pain control after discharge from the hospital as he likely will not have access to opioid pain medication due to being incarcerated. Please refer to daily progress notes and PT notes for complete details. After exam on 12/06/18, patient was felt to be stable for discharge back to [facility]. Patient will f/u in the office in about 2 weeks for further evaluation including x-rays and incision check, sooner if having any issues or concerns. Lab Results 12/03/18 12/03/18 12/03/18 Range/Units 07:21 07:52 21:28 WBC (4.8-10.8) K/uL RBC (4.7-6.1) M/uL Hgb (14.0-18.0) g/dL Hct (42-52) % MCV (80-100) fL MCH (25-34) pg MCHC (32-36) g/dL RDW Std Deviation (36.4-46.3) fL RDW Coeff of Rudolph (11.5-14.5) % Plt Count (130-400) K/uL MPV (7.4-10.4) fL Immature Gran % (Auto) % Neut % (Auto) % Lymph % (Auto) % [place] % (Auto) % Eos % (Auto) % Baso % (Auto) % Immature Gran # (Auto) (0.00-0.02) K/uL Neut # (Auto) (1.4-6.5) K/uL Lymph # (Auto) (1.2-3.4) K/uL [place] # (Auto) (0.11-0.59) K/uL Eos # (Auto) (0-0.5) K/uL Baso # (Auto) (0-0.2) K/uL PT (9.0-12.0) Seconds INR (0.9-1.1) Sodium (136-145) mmol/L Potassium (3.5-5.1) mmol/L Chloride (98-107) mmol/L Carbon Dioxide (21-32) mmol/L Anion Gap (3-11) BUN (7-18) mg/dl Creatinine (0.6-1.4) mg/dl Est Cr Clr Drug Dosing ml/min Est GFR ( Amer) Est GFR (Non-Af Amer) BUN/Creatinine Ratio (10-20) Glucose (70-99) mg/dl Calcium (8.5-10.1) mg/dl Troponin I (0-0.045) ng/ml Nasal Screen MRSA (PCR) Negative (Negative) Blood Type Cancelled AB Positive Antibody Screen Cancelled NEGATIVE 12/04/18 12/04/18 12/04/18 Range/Units 05:27 05:27 09:17 WBC 17.09 H (4.8-10.8) K/uL RBC 4.39 L (4.7-6.1) M/uL Hgb 13.2 L (14.0-18.0) g/dL Hct 40.3 L (42-52) % MCV 91.8 (80-100) fL MCH 30.1 (25-34) pg MCHC 32.8 (32-36) g/dL RDW Std Deviation 44.2 (36.4-46.3) fL RDW Coeff of Rudolph 13.1 (11.5-14.5) % Plt Count 283 (130-400) K/uL MPV 10.3 (7.4-10.4) fL Immature Gran % (Auto) 0.3 % Neut % (Auto) 85.4 % Lymph % (Auto) 7.4 % [place] % (Auto) 6.9 % Eos % (Auto) 0.0 % Baso % (Auto) 0.0 % Immature Gran # (Auto) 0.05 H (0.00-0.02) K/uL Neut # (Auto) 14.59 H (1.4-6.5) K/uL Lymph # (Auto) 1.27 (1.2-3.4) K/uL [place] # (Auto) 1.18 H (0.11-0.59) K/uL Eos # (Auto) 0.00 (0-0.5) K/uL Baso # (Auto) 0.00 (0-0.2) K/uL PT (9.0-12.0) Seconds INR (0.9-1.1) Sodium 141 (136-145) mmol/L Potassium 4.8 (3.5-5.1) mmol/L Chloride 108 H (98-107) mmol/L Carbon Dioxide 25 (21-32) mmol/L Anion Gap 8.0 (3-11) BUN 15 (7-18) mg/dl Creatinine 1.02 (0.6-1.4) mg/dl Est Cr Clr Drug Dosing 126.3 ml/min Est GFR ( Amer) 97.5 Est GFR (Non-Af Amer) 84.1 BUN/Creatinine Ratio 14.8 (10-20) Glucose 171 H (70-99) mg/dl Calcium 9.0 (8.5-10.1) mg/dl Troponin I < 0.015 (0-0.045) ng/ml Nasal Screen MRSA (PCR) (Negative) Blood Type Antibody Screen 12/04/18 12/04/18 12/05/18 Range/Units 14:02 21:51 07:06 WBC 12.25 H (4.8-10.8) K/uL RBC 4.10 L (4.7-6.1) M/uL Hgb 12.5 L (14.0-18.0) g/dL Hct 37.0 L (42-52) % MCV 90.2 (80-100) fL MCH 30.5 (25-34) pg MCHC 33.8 (32-36) g/dL RDW Std Deviation 44.4 (36.4-46.3) fL RDW Coeff of Rudolph 13.4 (11.5-14.5) % Plt Count 255 (130-400) K/uL MPV 9.4 (7.4-10.4) fL Immature Gran % (Auto) 0.2 % Neut % (Auto) 64.8 % Lymph % (Auto) 26.3 % [place] % (Auto) 7.3 % Eos % (Auto) 1.0 % Baso % (Auto) 0.4 % Immature Gran # (Auto) 0.03 H (0.00-0.02) K/uL Neut # (Auto) 7.93 H (1.4-6.5) K/uL Lymph # (Auto) 3.22 (1.2-3.4) K/uL [place] # (Auto) 0.90 H (0.11-0.59) K/uL Eos # (Auto) 0.12 (0-0.5) K/uL Baso # (Auto) 0.05 (0-0.2) K/uL PT (9.0-12.0) Seconds INR (0.9-1.1) Sodium (136-145) mmol/L Potassium (3.5-5.1) mmol/L Chloride (98-107) mmol/L Carbon Dioxide (21-32) mmol/L Anion Gap (3-11) BUN (7-18) mg/dl Creatinine (0.6-1.4) mg/dl Est Cr Clr Drug Dosing ml/min Est GFR ( Amer) Est GFR (Non-Af Amer) BUN/Creatinine Ratio (10-20) Glucose (70-99) mg/dl Calcium (8.5-10.1) mg/dl Troponin I < 0.015 < 0.015 (0-0.045) ng/ml Nasal Screen MRSA (PCR) (Negative) Blood Type Antibody Screen 12/05/18 12/06/18 Range/Units 07:06 05:52 WBC (4.8-10.8) K/uL RBC (4.7-6.1) M/uL Hgb (14.0-18.0) g/dL Hct (42-52) % MCV (80-100) fL MCH (25-34) pg MCHC (32-36) g/dL RDW Std Deviation (36.4-46.3) fL RDW Coeff of Rudolph (11.5-14.5) % Plt Count (130-400) K/uL MPV (7.4-10.4) fL Immature Gran % (Auto) % Neut % (Auto) % Lymph % (Auto) % [place] % (Auto) % Eos % (Auto) % Baso % (Auto) % Immature Gran # (Auto) (0.00-0.02) K/uL Neut # (Auto) (1.4-6.5) K/uL Lymph # (Auto) (1.2-3.4) K/uL [place] # (Auto) (0.11-0.59) K/uL Eos # (Auto) (0-0.5) K/uL Baso # (Auto) (0-0.2) K/uL PT 9.9 (9.0-12.0) Seconds INR 1.0 (0.9-1.1) Sodium 137 (136-145) mmol/L Potassium 3.6 D (3.5-5.1) mmol/L Chloride 104 (98-107) mmol/L Carbon Dioxide 28 (21-32) mmol/L Anion Gap 5.0 (3-11) BUN 12 (7-18) mg/dl Creatinine 0.75 (0.6-1.4) mg/dl Est Cr Clr Drug Dosing 175.3 ml/min Est GFR ( Amer) 122.2 Est GFR (Non-Af Amer) 105.5 BUN/Creatinine Ratio 15.4 (10-20) Glucose 139 H (70-99) mg/dl Calcium 8.4 L (8.5-10.1) mg/dl Troponin I (0-0.045) ng/ml Nasal Screen MRSA (PCR) (Negative) Blood Type Antibody Screen Total Time Total Time Spent Total Time Spent (In Minutes): 20 Discharge Plan Discharge Items [facility] Reason For Visit: Primary Osteoarthritis, Left shoulder Discharge Diagnosis: Left TSA Discharge Goals: Decrease discomfort, Improve function, Increase independence and Therapeutic intervention Activity: Per 'Additional Instructions' section Non-emergency contact: Primary Care Provider and Surgeon Call non-emergency contact if: your symptoms worsen, you have a fever, your temperature is above 101, your wound has increased redness and your wound has increased drainage Follow-up/Referrals: Betsy PHILLIPS [Primary Care Provider] - Diet: Regular Addtl Provider Instructions: ACTIVITY RECOMMENDATIONS: SELF CARE INSTRUCTIONS AFTER TOTAL SHOULDER ARTHROPLASTY A. You may do daily exercises as taught in physical therapy while in hospital. No lifting with the operative arm. Please schedule your outpatient physical therapy appointment to begin within 2-3 days after leaving the hospital. Specific restrictions will be written on your physical therapy prescription that is provided to you. B. You are to wear your sling/immobilizer at all times EXCEPT when performing your daily exercises, participating in physical therapy and for hygiene purposes. C. You may perform dry, daily dressing changes. Please keep your incision covered. You may shower 48 hours after surgery. Do not apply soap or any ointment/lotions directly over incision. Do not soak incision in bath tub/swimming pool. D. You may use ice as needed to operative shoulder. SPECIAL CARE INSTRUCTIONS: MEDICATION INSTRUCTIONS: *It is recommended you take Aspirin 325mg daily for four weeks post-op. VERY IMPORTANT TO READ AND REVIEW A. There are a few signs you need to watch for after you are home. Call [facility] at [phone] if you experience any of the followin. Increased severe shoulder pain. Some pain is expected especially when you exercise. 2. Increased swelling in you shoulder or arm; pain or swelling in either upper extremity. 3. Any fluid drainage from the incision. 4. Shortness of breath or chest pain. B. Please call [facility] at [phone] if you have any questions or concerns about your operation or recovery. C. Call your physician if: 1. Temperature is greater than 101 degrees (F). 2. Pain is not relieved by prescribed pain medications. 3. Increase drainage or redness from incision. 4. Unanswered questions or concerns. FOLLOW UP VISIT: Please call [facility] at [phone] to schedule a follow up appointment with Dr. Jimenez or his PA in 12-14 days from your surgery date. Prescriptions: New multivitamin [Daily-Emily] Tablet 1 tab PO QAM 30 Days Qty: 30 RF: 0 acetaminophen [Tylenol Extra Strength] 500 mg Tablet 1,000 mg PO Q8 30 Days Qty: 180 RF: 0 pantoprazole 40 mg Tablet,Delayed Release (Dr/Ec) 40 mg PO QAM 30 Days Qty: 30 RF: 0 tramadol 50 mg tablet 50 mg PO Q6H Qty: 30 RF: 0 Continued atorvastatin 10 mg Tablet 10 mg PO DAILY RF: 0 amlodipine 10 mg Tablet 10 mg PO DAILY RF: 0 ranitidine HCl 150 mg Tablet 150 mg PO BID RF: 0 Discontinued diclofenac sodium 75 mg Tablet,Delayed Release (Dr/Ec) 75 mg PO BID PRN (Reason: Pain) RF: 0 Stand-Alone Forms: [employer], Opioid Pain [facility] [place]/Other Patient Handouts: Surgery Prevent DVT After, Replacement Total Shoulder, Arthroscopy Shoulder Discharge Orders: Discharge Order (Routine); Ordered 12/06/18 Ordered By: Linnea Flowers Admission Data Admit Date/Time: 12/03/18 13:27 Attending Provider: Trenton Jimenez Admit Provider: Trenton Jimenez Primary Care Provider: Betsy PHILLIPS Other Providers: Alyssa Mera ; Santiago Jones Service: Surgical Services Other Interventions: Discharge Summary Assessment (RN) Last Done: 12/06/18 10:28 DC Date/Time DO NOT enter until pt leaves facility: 12/06/18 12:32
== END 2018-12-06 12:32 | DRG 483 ==
LOC: ASU 06:31 → 3E 13:27 → 2N 12-04 12:06 → 3N 12-05 16:50

== ENCOUNTER 2021-05-29 06:48 | Observation (INO) ==
--- NOTE | 2021-05-28 09:27 | Anesthesiology Consultation ---
Date of Service May 28, 2021 Assessment & Plan (1) Encounter for pre-operative examination: - COVID screening: Patient resides at [facility] (per [facility] occupational therapy director communication 05/15/21, no current positive cases at facility). Patient vaccinated 10/19/20 (Srinath) per group home records. Preop COVID testing was planned to be done 05/23. Given high risk screening, will order cepheid for AM DOS. - S/P Left TSA (12/03/18): Grade view 1, Elizalde#2, ETT 7.5 + PNB at [facility] - Check BSG AM DOS - Preop testing: Surgeon ordered preop EKG/CXR. Have not received from [facility] so will order for AM DOS. Chart Review Chart Review: Acceptable Risk for Surgery (pending preop EKG/CXR for AM DOS) and Patient NOT seen in Pre Admission Testing Consults Requested none ASA ASA3 Proposed Anesthesia Anesthesia Type: MAC Spinal Risk / Benefits Reviewed With: PT / POA / Parent / Guardian, Accepts Plan and Informed Consent Obtained History Surgery Operation Date: 05/29/21 10:05 Proposed Procedures p Left Total Hip Arthroplasty - Uriel Varma, Height/Weight Height: 6 ft 4 in Weight: 138.8 kg Allergies Allergy/AdvReac Type Severity Reaction Status Date / Time aspirin AdvReac Mild Vomiting Verified 05/29/21 07:07 Medications Home Medications Medication Instructions Recorded Confirmed Last Taken amlodipine 10 mg tablet 10 mg PO DAILY 10/21/18 05/29/21 05/29/21 04:30 atorvastatin 10 mg tablet 10 mg PO DAILY 10/21/18 05/29/21 05/29/21 04:30 diclofenac sodium 75 mg 75 mg PO BID 05/28/21 05/28/21 Unknown tablet,delayed release insulin glargine 100 unit/mL (3 22 unit SUBCUT QPM 05/28/21 05/29/21 05/28/21 1 5:30 mL) subcutaneous pen (Lantus Solostar U-100 Insulin) insulin regular human 100 unit/mL 1 sliding scale dose SUBCUT BID 05/28/21 05/29/21 Unknown injection solution (Novolin R Regular U-100 Insulin) metformin 1,000 mg tablet 1,000 mg PO BID 05/28/21 05/29/21 05/29/21 04:30 sulfamethoxazole 800 1 tab PO BID 05/28/21 05/29/21 Unknown mg-trimethoprim 160 mg tablet (Bactrim DS) trolamine salicylate 10 % lotion 1 applic TOPICAL DAILY PRN 05/28/21 05/29/21 Unknown Active Medications Generic Name Dose Route Start Last Admin Trade Name Franckq PRN Reason Stop Dose Admin Lactated Ringer's 1,000 mls @ 15 mls/hr 05/29/21 06:00 05/29/21 07:41 Lr IV 05/29/21 18:00 15 mls/hr .Q24H DELANEY Administration Past Medical History Medical History Diabetes mellitus, type 2 IDDM GERD (gastroesophageal reflux disease) HTN (hypertension) Hyperlipidemia Hypertension Inmate in correctional facility Obesity Osteoarthritis Exercise / Class Metabolic Activity II 4-5 Yardwork/Stairs/Walk up hill Past Family History Family History Other Family history non-contributory Past Surgical History Surgical History History of arthroplasty of left shoulder Left TSA (12/03/18): Grade view 1, Elizalde#2, ETT 7.5 + PNB at [facility] History of total hip arthroplasty Past Anesthesia History No Hx of Anesthesia Complications and No Family Hx of Anesthesia Complications History of PONV No Hx of PONV and No Hx of Motion Sickness Social History Smoking Status: Current every day smoker tobacco type: cigarettes Smoking cigarettes per day: 5 Hx Alcohol Use: Yes (formerly) Alcohol type: beer alcohol intake frequency: a few times a week Hx Substance Use: Yes substance use type: marijuana Last Used Substance: Unknown Physical Exam Vital Signs Last Vital Signs Temp 97.5 F L 05/29/21 08:25 Pulse 66 05/29/21 08:25 Resp 18 05/29/21 08:25 BP 113/75 05/29/21 08:25 Pulse Ox 99 05/29/21 08:25 ENMT Mouth: no dentition abnormality Thyromental Distance: > or= 3.5 Finger Breadths Mallampati Class: III Neck normal visual inspection Respiratory normal respiratory effort Auscultation: lungs clear to auscultation bilaterally Cardiovascular Rate/Rhythm: regular rate and regular rhythm Testing Laboratory Results 05/29/21 07:15 POC Glucose 100 H 03/25/21 WBC 7.97 H/H 14.6/45.6 PLATELETS 370 SODIUM 142 POTASSIUM 4.5 CHLORIDE 105 CO2 28 BUN 8 CREATININE 0.75 GLUCOSE 103 HGBA1C 6.5% Most recent labs slightly out of date. At anesthesiologist discretion AM DOS if any updated labs needed prior to surgery from their perspective.* Echocardiogram Date: 12/04/18 EF 60-65%. No regional motion abnormalities. Moderate concentric LVH. Grade 1 diastolic dysfunction. No significant valvular disease.
--- NOTE | 2021-05-28 11:20 | PAT Medication Instructions ---
Medication Instructions Date of Service May 28, 2021 Home Medications amlodipine 10 mg tablet 10 mg PO DAILY atorvastatin 10 mg tablet 10 mg PO DAILY diclofenac sodium 75 mg tablet,delayed release 75 mg PO BID insulin glargine 100 unit/mL (3 mL) subcutaneous pen (Lantus Solostar U-100 Insulin) 22 unit SUBCUT QPM insulin regular human 100 unit/mL injection solution (Novolin R Regular U-100 Insulin) 1 sliding scale dose SUBCUT BID metformin 1,000 mg tablet 1,000 mg PO BID sulfamethoxazole 800 mg-trimethoprim 160 mg tablet (Bactrim DS) 1 tab PO BID trolamine salicylate 10 % lotion 1 applic TOPICAL DAILY PRN ASK your surgeon for instructions diclofenac sodium 75 mg tablet,delayed release 75 mg PO BID STOP taking 24 hours before surgery trolamine salicylate 10 % lotion 1 applic TOPICAL DAILY PRN DO NOT take the morning of surgery insulin regular human 100 unit/mL injection solution (Novolin R Regular U-100 Insulin) 1 sliding scale dose SUBCUT BID metformin 1,000 mg tablet 1,000 mg PO BID Take morning of surgery With a small sip of water, OTHERWISE NOTHING TO EAT OR DRINK AFTER MIDNIGHT: amlodipine 10 mg tablet 10 mg PO DAILY atorvastatin 10 mg tablet 10 mg PO DAILY sulfamethoxazole 800 mg-trimethoprim 160 mg tablet (Bactrim DS) 1 tab PO BID Take evening before surgery insulin glargine 100 unit/mL (3 mL) subcutaneous pen (Lantus Solostar U-100 Insulin) 22 unit SUBCUT QPM insulin regular human 100 unit/mL injection solution (Novolin R Regular U-100 Insulin) 1 sliding scale dose SUBCUT BID metformin 1,000 mg tablet 1,000 mg PO BID sulfamethoxazole 800 mg-trimethoprim 160 mg tablet (Bactrim DS) 1 tab PO BID Other Notes If you have any questions please call us at [phone] or [phone] or [phone] or [phone]
--- NOTE | 2021-05-28 17:03 | History & Physical Report ---
Date of Service May 28, 2021 Assessment & Plan (1) Osteoarthritis of left hip: Plan: Schedule a left CHRISTINE for 05.29.21. All potential risks, benefits, complications, alternatives, and rehab have been discussed with the patient and he wishes to proceed. Plan for ASA 81 mg BID x 4 wks for post op DVT prophylaxis. History of Present Illness Chief Complaint: left hip pain Primary Care Provider: JACQUELINE Meyer This is a patient with a long hx of bilateral hip pain treated for osteoarthritis. He has previously had his right hip replaced and has done very well. His left hip has now failed conservative management and is now being set up for CHRISTINE. Allergies Allergy/AdvReac Type Severity Reaction Status Date / Time aspirin AdvReac Mild Vomiting Verified 05/28/21 11:03 Home Medications Medication Instructions Recorded Confirmed Type amlodipine 10 mg tablet 10 mg PO DAILY 10/21/18 05/28/21 History atorvastatin 10 mg tablet 10 mg PO DAILY 10/21/18 05/28/21 History diclofenac sodium 75 mg 75 mg PO BID 05/28/21 05/28/21 History tablet,delayed release insulin glargine 100 unit/mL (3 22 unit SUBCUT QPM 05/28/21 05/28/21 History mL) subcutaneous pen (Lantus Solostar U-100 Insulin) insulin regular human 100 unit/mL 1 sliding scale dose SUBCUT BID 05/28/21 05/28/21 History injection solution (Novolin R Regular U-100 Insulin) metformin 1,000 mg tablet 1,000 mg PO BID 05/28/21 05/28/21 History sulfamethoxazole 800 1 tab PO BID 05/28/21 05/28/21 History mg-trimethoprim 160 mg tablet (Bactrim DS) trolamine salicylate 10 % lotion 1 applic TOPICAL DAILY PRN 05/28/21 05/28/21 History Past Med/Surg History Medical History Diabetes mellitus, type 2 IDDM GERD (gastroesophageal reflux disease) HTN (hypertension) Hyperlipidemia Hypertension Inmate in correctional facility Obesity Osteoarthritis Surgical History History of arthroplasty of left shoulder Left TSA (12/03/18): Grade view 1, Elizalde#2, ETT 7.5 + PNB at [facility] History of total hip arthroplasty Family History Other Family history non-contributory Social History Smoking Status: Unknown if ever smoked Cigarettes Per Day: 5; Hx Alcohol Use: Yes (formerly) Alcohol type: beer Hx Substance Use: Yes Last Used Substance: Unknown Communication Ability: Effective 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 Beliefs That Will Affect Care: None Current Living Situation: Other Current Living Situation Comment: inmate Feels Safe at Home: No Assistive Devices: None Physical Exam Constitutional: well developed and well nourished; no acute distress ENMT: external ear and nose normal, oropharynx normal Neck: trachea midline Respiratory: normal respiratory effort, lungs clear to auscultation Cardiovascular: Rate/Rhythm: regular rate and regular rhythm Gastrointestinal (Abdomen): normal bowel sounds, soft, nontender, no hepatosplenomegaly Musculoskeletal: Hip: + limited ROM of hip (left internal/external rotation), + joint line tenderness (left groin), + OTTO test positive (left) and + FADIR test positive (left); no skin erythema and no ecchymosis Skin: no rashes, warm and dry Neurologic: normal touch/pain/proprioception Psychiatric: A+Ox3, euthymic affect Speech: normal rate/rhythm/volume of speech
[~2021-05-29 06:48] MED LIST changes: -ACETAMINOPHEN 500 MG TAB PO SCH; +BUPIVACAINE 0.5 % 5 MG/1 ML PF 10ML VIAL ONE; -CEFAZOLIN 3000MG 65 ML IV SCH; -CeleBREX 200 MG CAP PO SCH; -FAMOTIDINE 20 MG TAB PO SCH; -GABAPENTIN 300 MG x 3 PO SCH; -LR 15ML/HR IV SCH; +LR 500ML BOLUS, THEN 15ML/HR IV SCH; +ROPIVACAINE 0.5% HCL/PF 150 MG, BUPIVACAINE 0.75% MPF 20 ML, EPINEPHrine 30MG/30ML (OR ... INFIL SCH; -dexAMETHasone 4 MG TAB PO SCH
[2021-05-29] MEDS ORDERED: CeleBREX 200 MG CAP ONE (07:34)
[2021-05-29] MEDS ORDERED: dexAMETHasone 4 MG TAB PO ONE (07:34)
[2021-05-29] MEDS ORDERED: FAMOTIDINE 20 MG TAB ONE (07:34)
[2021-05-29] MEDS ORDERED: METOCLOPRAMIDE HCL 10 MG TABLET ONE (07:35)
[2021-05-29] MEDS ORDERED: TRANEXAMIC ACID / 0.7% NACL 1000MG/100ML BAG IV ONE (07:35)
[2021-05-29] MEDS ORDERED: GABAPENTIN 300 MG CAP ONE (07:35)
[2021-05-29] MEDS ORDERED: ACETAMINOPHEN 500 MG TAB ONE (07:35)
[2021-05-29] MEDS ORDERED: ceFAZolin 3000MG/72.5 ML BAG IV ONE (07:36)
--- NOTE | 2021-05-29 07:49 | XRay Report ---
XR chest 2V PA/lateral HISTORY: 55 years-old Male preop preoperative exam. COMPARISON: CTA chest 12/04/2018 TECHNIQUE: PA and lateral views of the chest FINDINGS: The cardiomediastinal and hilar silhouettes are within normal limits. There is no pneumothorax, pleur al effusion, airspace consolidation or overt pulmonary edema. Left shoulder arthroplasty. No acute fr acture. IMPRESSION: No acute process. ACT 112: Negative or not required by law. The above report was generated using voice recognition software. It may contain grammatical, syntax o r spelling errors. Electronically signed by: Keron Guo M.D. 05/29/2021 7:48 AM
[2021-05-29] MEDS ORDERED: fentaNYL citrate 100 MCG/2 ML VIAL ONE ×2 (08:44→12:58)
[2021-05-29] MEDS ORDERED: MIDAZOLAM HCL 1 MG/ML 2ML VIAL ONE ×2 (08:44→12:11)
[2021-05-29] MEDS ORDERED: ATROPINE SULFATE 0.1 MG/ML 10ML SYR IV PRN (08:54)
[2021-05-29] MEDS ORDERED: ePHEDrine sulfate 50 MG/ML AMP IV PRN (08:54)
[2021-05-29] MEDS ORDERED: ONDANSETRON INJ 2 MG/ML 2 ML VIAL IV PRN ×2 (08:54→14:43)
[2021-05-29] MEDS ORDERED: ONDANSETRON INJ 2 MG/ML 2 ML VIAL ONE (09:30)
[2021-05-29] MEDS ORDERED: PROPOFOL IV EMULSION 10 MG/ML 20 ML VIAL IV ONE ×9 (09:30→13:21)
--- NOTE | 2021-05-29 09:34 | History & Physical Bridge Note ---
Date of Service May 29, 2021 History & Physical Bridge Note I have examined the patient, reviewed the History & Physical and in the interval since the performance of the History & Physical I have noted the following changes of clinical significance: no changes noted
[2021-05-29] MEDS ORDERED: PHENYLEPHRINE HCL 10 MG/ML VIAL ONE (13:22)
--- NOTE | 2021-05-29 13:45 | Post Operative Brief Note ---
Immediate Post Op Note v1 Date of Surgery May 29, 2021 Pre & Post Diagnosis Operation Date: 05/29/21 10:05 Pre-Op Diagnosis: Unilateral Primary Osteoarthritis, Left Hip, Degenerative joint disease left hip. Left hip pain Post-Op Diagnosis: Unilateral Primary Osteoarthritis, Left Hip, Degenerative joint disease left hip. Left hip pain I identified the patient and participated in the time-out.: Yes Procedure Operation Date: 05/29/21 10:05 Actual Procedures p Left Total Hip Arthroplasty Mirza Accolade 2 size #6 femur, 58mm Trident 2 acetabular shell, 10 degree poly liner, 6.5mm screws X2(Left) - Uriel Varma DO Surgeon Uriel Varma DO Bleach Chlorinator Choco Rivera PA-C Estimated Blood Loss 50 Findings Consistent with Post-Op Diagnosis Specimens Bone left hip Drains Hemovac Drain (Left hip) Anesthesia Type MAC Regional Complications none Disposition Accompanied Patient To Recovery: No
[2021-05-29] MEDS: fentaNYL citrate 100 MCG/2 ML VIAL IV PRN ×2 (14:12→14:17)
--- NOTE | 2021-05-29 14:24 | Anesthesiology Progress Note ---
Date of Service May 29, 2021 Anesthesia Post Procedure Vital Signs Vital Signs: Temp Pulse Resp BP Pulse Ox 05/29/21 14:14 96 H 18 130/85 98 05/29/21 14:05 92 H 16 121/86 98 05/29/21 13:55 92 H 18 129/85 99 05/29/21 13:45 97.5 F L 100 H 18 122/99 99 05/29/21 08:25 97.5 F L 66 18 113/75 99 05/29/21 08:02 97.9 F 74 18 143/89 H 97 Pain Intensity Left Hip: Pain Intensity: 7 Transfer of Care Handoff Completed per policy Notes Mental Status: alert / awake / arousable and participated in evaluation Patient Amnestic to Procedure: Yes Nausea / Vomiting: adequately controlled Pain: adequately controlled Airway Patency, RR, SpO2: stable & adequate BP & HR: stable & adequate Hydration State: stable & adequate Neuraxial Anesthesia: was administered and sensory block is resolving Anesthetic Complications: no major complications apparent and Pt Satisfied with anesthetic care
--- NOTE | 2021-05-29 14:28 | XRay Report ---
SINGLE VIEW PELVIS; SINGLE VIEW LEFT HIP CLINICAL HISTORY: Postoperative examination. FINDINGS: An AP portable view of the hips and pelvis with a crosstable lateral portable view of the l eft hip are obtained. A bipolar left hip arthroplasty is in near-anatomic alignment. At least 2 eliel ical screws transfix the acetabular cup. No acute fracture is identified. There are expected postoper ative changes overlying the left hip including skin clips, subcutaneous gas, a surgical drain, and so ft tissue swelling. A right hip arthroplasty is also in place. IMPRESSION: Expected postoperative findings status post left hip arthroplasty. No acute fracture is s een. ACT 112: Negative or not required by law. Electronically signed by: Derrek Carroll M.D. 05/29/2021 2:26 PM
[2021-05-29] MEDS ORDERED: METOCLOPRAMIDE HCL INJ 5 MG/ML 2 ML VIAL IV PRN (14:43)
[2021-05-29] MEDS ORDERED: PHARMACY GLYCEMIC MGMT CONSULT PRN (14:43)
[2021-05-29] MEDS ORDERED: bisacodyL 10 MG SUPP PR PRN (14:43)
[2021-05-29] MEDS ORDERED: ALUMINUM/MAGNESIUM SUSP 30 ML UDC PO PRN (14:43)
[2021-05-29] MEDS ORDERED: TAMSULOSIN HCL 0.4 MG CAP PO PRN (14:43)
[2021-05-29] MEDS ORDERED: MAGNESIUM HYDROXIDE SUSP 30 ML UDC PO PRN (14:43)
[2021-05-29] MEDS ORDERED: NALOXONE HCL 0.4 MG/1 ML VIAL/CARP IV PRN (14:43)
[2021-05-29] MEDS ORDERED: diphenhydrAMINE Capsule 25 MG CAP PO PRN (14:43)
[2021-05-29] MEDS ORDERED: GLUCOSE 10 TABS/TUBE PO PRN (14:56)
[2021-05-29] MEDS ORDERED: GLUCAGON FOR INJ 1 MG VIAL SQ PRN (14:56)
[2021-05-29] MEDS ORDERED: GLUCOSE 40% GEL 15 GM TUBE PO PRN (14:56)
[2021-05-29] MEDS ORDERED: CARBOHYDRATES FOR HYPOGLYCEMIA PO PRN (14:56)
[2021-05-29] MEDS ORDERED: DEXTROSE 50% 50 ML SYRINGE IV PRN (14:56)
--- NOTE | 2021-05-29 15:26 | Radiation OncologyConsultation ---
Date of Consultation May 29, 2021 Assessment & Plan (1) Heterotopic ossification of joint: Assessment: Mr. Cabral is a 55-year-old gentleman who presents with a history of a right total hip arthroplasty status post prophylactic radiation therapy to prevent heterotopic ossification completed in October 2017. The patient has undergone a left total hip arthroplasty today by Dr. Varma. There is concern for development of heterotopic ossification and a consult has been requested for prophylactic radiation therapy for the left hip. I am now seeing the patient in consultation. Treatment Options: 1. Prophylactic radiation therapy. 2. High dose NSAIDs. 3. Observation. The patient has elected to undergo prophylactic radiation therapy to the left hip to prevent heterotopic ossification. Radiation therapy may be done within 24 to 72 hours post surgery. Plan: 1. CT simulation tomorrow morning. 2. Plan for radiation therapy tomorrow. Single fraction. 750 cGy. 3. Continue all other management as per orthopedic surgery. 4. Patient and family encouraged to call us with any further questions or concerns. Rationale/Explanation of Treatment: I did explain the indications, alternatives, benefits, risks and side effects of external beam radiation therapy. I did explain the most common side effects including, but not limited to, skin erythema, skin breakdown, hyperpigmentation, telangiectasia, wound complications, perianal fistula development, fistula formation, nausea, vomiting, bowel obstruction, bowel perforation, dysuria, increased urinary frequency, urgency, diarrhea, constipation, melena, hematochezia, hematuria, radiation cystitis, radiation proctitis, fatigue, decreased blood counts, wound complications from surgery, rectal incontinence, secondary malignancy development. I did explain the procedures and daily process of radiation therapy. The patient understands and would be willing to consent to treatment. I have explained to the patient that there is an increased risk of overlap from the previous course of radiation therapy and the current course of radiation therapy which can increase the risk of all acute and late side effects of radiation therapy. The patient had multiple questions which were answered to his full satisfaction. Thank you for allowing us to participate in the care of this patient. This chart was completed in part utilizing [employer] Speech Voice Recognition software. Attempts were made to minimize the grammatical errors, random word insertions, pronoun errors and incomplete sentences. Any formal questions or concerns about the content, text or information contained within the body of this dictation should be directly addressed to the provider for clarification. Yocasta Solomon MD Department of Radiation Oncology [facility] History of Present Illness Attending Physician: Uriel Varma DO History of Present Illness 10/30/2017. Prophylactic radiation therapy to right hip to prevent development of heterotopic ossification following right total hip arthroplasty. 750 cGy. 1 fraction. 05/29/2021. Left hip total hip arthroplasty by Dr. Varma. Request for prophylactic radiation therapy to prevent development of heterotopic ossification. 05/29/2021. Hip x-ray. IMPRESSION: Expected postoperative findings status post left hip arthroplasty. No acute fracture is seen. Allergies Allergy/AdvReac Type Severity Reaction Status Date / Time aspirin AdvReac Mild Vomiting Verified 05/29/21 07:07 Home Medications Medication Instructions Recorded Confirmed Type amlodipine 10 mg tablet 10 mg PO DAILY 10/21/18 05/29/21 History atorvastatin 10 mg tablet 10 mg PO DAILY 10/21/18 05/29/21 History diclofenac sodium 75 mg 75 mg PO BID 05/28/21 05/28/21 History tablet,delayed release insulin glargine 100 unit/mL (3 22 unit SUBCUT QPM 05/28/21 05/29/21 History mL) subcutaneous pen (Lantus Solostar U-100 Insulin) insulin regular human 100 unit/mL 1 sliding scale dose SUBCUT BID 05/28/21 05/29/21 History injection solution (Novolin R Regular U-100 Insulin) metformin 1,000 mg tablet 1,000 mg PO BID 05/28/21 05/29/21 History sulfamethoxazole 800 1 tab PO BID 05/28/21 05/29/21 History mg-trimethoprim 160 mg tablet (Bactrim DS) trolamine salicylate 10 % lotion 1 applic TOPICAL DAILY PRN 05/28/21 05/29/21 History Patient History Medical History (Updated 05/29/21 @ 15:22 by Yocasta Solomon MD) Diabetes mellitus, type 2 IDDM GERD (gastroesophageal reflux disease) Heterotopic ossification of joint HTN (hypertension) Hyperlipidemia Hypertension Inmate in correctional facility Obesity Osteoarthritis Surgical History History of arthroplasty of left shoulder Left TSA (12/03/18): Grade view 1, Elizalde#2, ETT 7.5 + PNB at [facility] History of total hip arthroplasty Family History Other Family history non-contributory Social History Smoking Status: Former smoker Hx Alcohol Use: Yes (formerly) Alcohol type: beer Hx Substance Use: Yes Last Used Substance: Unknown Communication Ability: Effective 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 Pain medication is controlling his pain. Physical Exam Constitutional: WD/WN, vitals as above Psychiatric: A+Ox3, euthymic affect
--- NOTE | 2021-05-29 15:26 | Hospitalist Consultation ---
Date of Consultation May 29, 2021 Assessment & Plan (1) Osteoarthritis of left hip: 05/29/21 left total hip arthroplasty Mirza Accolade by Dr. Varma (2) Diabetes mellitus, type 2: Patient typically on insulin at the present for his type 2 diabetes continuing his glargine 22 units every afternoon with insulin sliding scale (3) HTN (hypertension): Continues on amlodipine 10 mg a day, primary care at the present may consider switching to an ALONDRA inhibitor or angiotensin receptor jada for renal protective effects with regard to his diabetes (4) HLD (hyperlipidemia): continues on atorvastatin for dyslipidemia treatment (5) DVT prophylaxis: DVT prevention per surgical preference We will continue to survey the patient's blood glucose please call us if the patient needs to be re seen History of Present Illness Attending Physician: Uriel Varma, History of Present Illness Postoperative medical consultation 55-year-old male who underwent total hip replacement. Patient has previous orthopedic surgery with the left total shoulder arthroplasty and a right total hip replacement. Patient is insulin requiring diabetic hypertensive and dyslipidemic patient. All his postoperative medications have been ordered appropriately with the addition of insulin sliding scale from his usual standard dose insulin. This is will be helpful in the postoperative stress. Also his oral intake is variable. Patient was seen in the PACU where his vital signs were stable he still having some anesthesia effects of paresthesias to his lower extremities but he feels these are improving. He is a warming blanket on. He is alert and oriented making sense he can move both limbs and wiggle his toes although his left foot has some more paresthesias in his right Allergies Allergy/AdvReac Type Severity Reaction Status Date / Time aspirin AdvReac Mild Vomiting Verified 05/29/21 07:07 Home Medications Medication Instructions Recorded Confirmed Type amlodipine 10 mg tablet 10 mg PO DAILY 10/21/18 05/29/21 History atorvastatin 10 mg tablet 10 mg PO DAILY 10/21/18 05/29/21 History diclofenac sodium 75 mg 75 mg PO BID 05/28/21 05/28/21 History tablet,delayed release insulin glargine 100 unit/mL (3 22 unit SUBCUT QPM 05/28/21 05/29/21 History mL) subcutaneous pen (Lantus Solostar U-100 Insulin) insulin regular human 100 unit/mL 1 sliding scale dose SUBCUT BID 05/28/21 05/29/21 History injection solution (Novolin R Regular U-100 Insulin) metformin 1,000 mg tablet 1,000 mg PO BID 05/28/21 05/29/21 History sulfamethoxazole 800 1 tab PO BID 05/28/21 05/29/21 History mg-trimethoprim 160 mg tablet (Bactrim DS) trolamine salicylate 10 % lotion 1 applic TOPICAL DAILY PRN 05/28/21 05/29/21 History Patient History Medical History Diabetes mellitus, type 2 IDDM GERD (gastroesophageal reflux disease) HTN (hypertension) Hyperlipidemia Hypertension Inmate in correctional facility Obesity Osteoarthritis Surgical History History of arthroplasty of left shoulder Left TSA (12/03/18): Grade view 1, Elizalde#2, ETT 7.5 + PNB at [facility] History of total hip arthroplasty Family History Other Family history non-contributory Social History (Updated 05/29/21 @ 15:22 by Santigao Jones MD) Smoking Status: Former smoker Hx Alcohol Use: Yes (formerly) Alcohol type: beer Hx Substance Use: Yes Last Used Substance: Unknown Communication Ability: Effective Caption Writer Required: Yes Beliefs That Will Affect Care: None Current Living Situation: Other Current Living Situation Comment: inmate Feels Safe at Home: No Assistive Devices: None Review of Systems Review of Systems: Mild distress and fatigue still slightly fatigued from anesthesia no headache, no visual changes no speech or swallowing issues no chest pain, pressure or palpitations no shortness of breath, cough or wheezes no abdominal pain, nausea or vomiting, diarrhea or constipation no dysuria, hematuria or frequency no focal joint pain or swelling no back pain, CVA tenderness or radicular pain no bruising, bleeding or rashes Paresthesias to both feet left greater than right however able to move his legs and wiggle his toes no complaints of anxiety or depression.. Physical Exam Physical Exam: The patient appeared well nourished and normally developed. Vital signs as documented. Head exam is normocephalic atraumatic Neck is without JVD, thyromegaly, or carotid bruits. Lungs are clear to auscultation, no focal loss of breath sounds Cardiac exam, Rhythm is regular.. No murmurs, rubs or gallops. Abdominal exam reveals normal bowel sounds, soft non tender, no masses Extremities patient has good capillary refill and warmth distal lead to both extremities he can move both extremities to command Neurologic exam is alert and oriented, no focal loss of strength Psychologically is without concerns for anxiety or depression Results & Data Results & Data ([facility]) Vital Signs (Past 12 Hours) Vital Signs Temp Pulse Resp BP Pulse Ox 05/29/21 15:05 90 18 110/85 98 05/29/21 14:50 91 H 18 106/85 98 05/29/21 14:35 97.5 F L 89 16 96/79 L 97 05/29/21 14:25 89 16 106/80 95 05/29/21 14:15 96 H 18 130/85 98 05/29/21 14:05 92 H 16 121/86 98 05/29/21 13:55 92 H 18 129/85 99 05/29/21 13:45 97.5 F L 100 H 18 122/99 99 05/29/21 08:25 97.5 F L 66 18 113/75 99 05/29/21 08:02 97.9 F 74 18 143/89 H 97 PG Care Time/CCT Total # of Minutes Spent Total Time Spent with Patient: Total time spent is greater than 50% in coordination of care (as documented) at patient's floor/unit and/or counseling patient: Coding Level of Care Code 72073 Inpt Consult Level 2 Diagnoses Osteoarthritis of left hip M16.12 Diabetes mellitus, type 2 E11.9 Diabetes mellitus longterm insulin use: with terminal worker use DVT prophylaxis Z29.9 HTN (hypertension) I10 HLD (hyperlipidemia) E78.5 (1) Diabetes mellitus, type 2 Diabetes mellitus longterm insulin use: with terminal worker use
[2021-05-29] MEDS ORDERED: TROLAMINE SALICYLATE 10% CRM 255 APPLN/85 GM TUBE EXT PRN (15:29)
[2021-05-29] MEDS: HYDROmorphone INJ 0.5 MG/0.5 ML SYR IV PRN ×2 (16:00→20:15)
[2021-05-29] MEDS: ACETAMINOPHEN 500 MG TAB PO SCH ×2 (16:00→22:10)
[2021-05-29] MEDS ORDERED: INSULIN ASPART 100 UNITS/ML 3 ML PEN SC SCH (16:30)
[2021-05-29] MEDS: INSULIN ASPART 100 UNITS/ML VIAL SC SCH ×2 (17:00→22:14)
[2021-05-29] MEDS: ceFAZolin 2000MG 2,000 MG/15 ML SYR IV SCH (18:05)
[2021-05-29] MEDS: oxyCODONE HCL IR 5 MG TAB (IMMEDIATE RELEASE) PO PRN ×2 (18:41→22:31)
--- NOTE | 2021-05-29 19:47 | Pharmacy Report ---
Pharmacy Glycemic Short Note 2 - Date of Service May 29, 2021 - Glycemic Short BSG Results (Last 24 hours): 05/29/21 05/29/21 05/29/21 07:15 14:04 16:04 POC Glucose 100 H 159 H 114 H OUTPATIENT ANTIDIABETIC REGIMEN: * Lantus 22 units SQ qPM * Regular insulin sliding scale BID * metformin 1000 mg BID * A1c ? ASSESSMENT: * Felix is a 55 yo T2DM s/p left total hip arthroplasty * Patient did receive intra-op steroids (dexamethasone 8 mg PO + orthomix), however BSGs show no evidence of steroid induced hyperglycemia. * Will continue home dose of Lantus and start Novolog CF/CR based on weight + stress 2-3 * Will likely be able to resume metformin in the morning PLAN FOR INPATIENT GLYCEMIC CONTROL: * Hold outpatient oral diabetes medications * Basal insulin * Lantus 22 units SQ qPM * Bolus insulin * NovoLog per scale ACHS or Q6hrs while NPO * Goal Range: Low 110 mg/dL - High 140 mg/dL * Correction Factor: 20 mg/dL/unit * Nutritional / Prandial insulin per carb ratio of 1 unit per 7 grams CHO consumed thank you
[2021-05-29] MEDS ORDERED: TRANEXAMIC ACID / 0.7% NACL 1,000 MG/100 ML BAG IV SCH (20:00)
[2021-05-29] MEDS: MISSING PHYSICIAN SIGNATURE ON ORDER SCH ×2 (20:20→20:22)
--- NOTE | 2021-05-29 20:33 | Operative Report (OR) ---
DATE OF PROCEDURE: 05/29/2021. PREOPERATIVE DIAGNOSES: 1. Left hip osteoarthritis. 2. Degenerative joint disease, left hip. 3. Left hip pain. POSTOPERATIVE DIAGNOSES: 1. Left hip osteoarthritis. 2. Degenerative joint disease, left hip. 3. Left hip pain. PROCEDURE: Left total hip arthroplasty using a uncemented Mirza Accolade II femoral stem size 6, Trident II Tritanium multi-hole cup 58 mm, 36 mm Biolox ceramic femoral head +0 neck length, 10-degree elevated liner polyethylene, 6.5 mm locking screws x2. SURGEON: Uriel Varma DO. EXECUTIVE KITCHEN MANAGER: Choco Rivera PA-C, who was present for patient positioning, sterile prep and drape, management of retractors and instruments. He was present through the critical portions of the case including wound closure, application of sterile dressing and transport of the patient to recovery. ANESTHESIA: Spinal with sedation and local intraarticular. SPECIMENS: Bone and tissue, left hip. DRAINS: Hemovac x2. COMPLICATIONS: None. BLOOD LOSS: 50 mL. PERTINENT HISTORY: This is a 55-year-old senior living inmate who had chronic progressive and ongoing left hip pain for the last 4 to 5 years. He attempted and failed conservative management including observation, use of an assistive device, physician-directed home exercises, physical therapy, steroid injection, anti-inflammatories, rest, and modification of activities. Radiographs demonstrate [id number] arthropathy, left hip with complete loss of joint space, marginal osteophytes, subchondral sclerosis, and subchondral cyst formation. The patient was scheduled for surgery as indicated. DESCRIPTION OF PROCEDURE: The patient was taken to the Operating Suite and placed supine on the Operating Room table after identification of the consent and identification of the proper operative site the patient was sedated. The patient had previously received a spinal epidural anesthetic. The patient was then placed in the right lateral decubitus position with the affected side up and Stulberg positioning device then used to maintain lateral position of the patient. All bony prominences were properly padded and protected. Axillary roll was placed as standard and the leg lengths were determined to be essentially equal and then the left hip was then sterilely prepped and draped in the usual fashion. 10-blade scalpel incision was made laterally over the greater trochanter. The incision was deepened through the subcutaneous tissue and meticulous hemostasis with electrocautery. Further incision through the layer of the fascia was performed with electrocautery and iliotibial band was then incised with electrocautery. Next, Charnley retractor was placed bother anteriorly and posteriorly at the level of the gluteus dayana tendon. Next, electrocautery was used to make an incision in the vastus lateralis and then sweep was made toward the anterior aspect of the patient along the course of the femoral neck and head. Abductor split was then completed with electrocautery in line with the femoral neck. The gluteus minimus and capsule were then incised and then soft tissue was dissected anteriorly using electrocautery and a Ranulfo retractor. Next as the soft tissue was dissected anteriorly the lesser trochanter was clearly identified and hip was dislocated with relative ease. Hypertrophic osteophytes were noted circumferentially. The hip joint was noted to be noticeably tight. Next the sagittal saw was used to resect the proximal portion of the femoral neck and head approximately one fingerbreadth proximal to the lesser trochanter. The femoral head was then removed and next the labrum was excised from the acetabulum with a 20 blade scalpel and long forceps. Next the incision was irrigated with pulsatile lavage and the pulvinar was then excised from the acetabulum. A combination of sharp and blunt large Hohmann retractors were placed anteriorly, superiorly and posteriorly. Next initial acetabular reamer was placed 46 mm medialized to the medial wall and then sequential reaming was performed to size 58 mm. Trial cage was then placed and noted to be stable with excellent fit. Next the wound was irrigated with pulsatile lavage with Ancef additive and 58 mm Gravelly Accolade II femoral neck was impacted and then two 6.5 mm screws were used to stabilize the acetabular shell. Next X3 poly 36 mm was impacted into the shell. Lap sponge was placed over to protect it. Next, attention was turned toward the proximal femur. Box osteotome was used to resect proximal portion of bone followed by first pass small reamer. Next, sequential broaching was performed up to size 6 and the 6 trial was placed followed by +0 36 mm trial head. Next, it was reduced and had excellent fit and feel with minimal shuck and excellent stability in all planes and range of motion. Leg lengths were restored and next all trial implants were removed. The wound was copiously irrigated with pulsatile lavage and size 6 Mirza Accolade II femoral neck x 132 degree final stem was impacted. Next, Biolox ceramic 36 mm head +0 neck was impacted. The construct was reduced. Range of motion was performed and noted to be completely stable with excellent range of motion, improved to greater degree than prior to surgery. Two 10 [place]ian single Hemovac drains were placed exiting anterolaterally. Wound was irrigated with pulsatile lavage. Next a #5 FiberWire suture was used to close the capsule and gluteus minimum via two small bone tunnels made with 2.4 mm drill bit in the greater trochanter. After FiberWireclosure was completed and noted to be stable then 10 Namibian drains were placed followed by closure of the vastus lateralis and the gluteus medius. This was closed with #1 Vicryl sutures. Next, the iliotibial band was closed using interrupted [id number] #1 Vicryl sutures. Next, final irrigation was performed with pulsatile lavage and dermis was closed using buried interrupted 2-0 Vicryl suture. The skin was closed with skin clarence. Sterile compressive dressing was applied. The patient was then placed supine and taken to recovery in stable condition. Job ID: [id number] [facility]OSPITALJanice
[2021-05-29] MEDS ORDERED: INSULIN GLARGINE SOLOSTAR 100 UNITS/ML 3 ML PEN SQ SCH (21:00)
[2021-05-29] MEDS ORDERED: metFORMIN HCL 500 MG TAB PO SCH (21:00)
[2021-05-29] MEDS ORDERED: SENNA 8.6 MG TAB PO SCH (21:00)
[2021-05-29] MEDS ORDERED: NovoLIN-R INSULIN PER UNIT CHARGE SQ SCH (21:00)
[2021-05-29] MEDS ORDERED: NovoLIN-N (NPH) PER UNIT CHARGE SQ ONE (21:00)
[2021-05-29] MEDS: ASPIRIN 81 MG ECTAB PO SCH (22:09)
[2021-05-29] MEDS: DOCUSATE SODIUM 100 MG CAP PO SCH (22:09)
[2021-05-29] MEDS: CeleBREX 200 MG CAP PO SCH (22:09)
[2021-05-29] MEDS: SULFAMETHOXAZOLE/TRIMETHOPRIM DS 800/160MG TAB PO SCH (22:10)
[2021-05-30] MEDS: ceFAZolin 2000MG 2,000 MG/15 ML SYR IV SCH (01:37)
[2021-05-30] MEDS: HYDROmorphone INJ 0.5 MG/0.5 ML SYR IV PRN ×2 (01:37→07:27)
[2021-05-30] MEDS ORDERED: INSULIN ASPART 100 UNITS/ML VIAL SC SCH (04:00)
[2021-05-30] MEDS: ACETAMINOPHEN 500 MG TAB PO SCH ×2 (05:55→13:12)
[2021-05-30] MEDS: oxyCODONE HCL IR 5 MG TAB (IMMEDIATE RELEASE) PO PRN ×3 (05:55→14:24)
[2021-05-30 06:21] LABS: Basophils # (auto) 0.01 K/uL (0-0.2); Basophils % (auto) 0.1 %; Eosinophils # (auto) 0.01 K/uL (0-0.5); Eosinophils % (auto) 0.1 %; Hematocrit (blood only) 35.3 % (42-52); Hemoglobin 11.4 g/dL (14.0-18.0); Immature Granulocytes # (auto) 0.03 K/uL (0.00-0.02); Immature Granulocytes % (auto) 0.2 %; Lymphocytes # (auto) 1.78 K/uL (1.2-3.4); Lymphocytes % (auto) 12.1 %; Mean Corpuscular Hemoglobin 28.9 pg (25-34); Mean Corpuscular Hgb Conc 32.3 g/dL (32-36); Mean Corpuscular Volume 89.4 fL (80-100); Mean Platelet Volume 9.5 fL (7.4-10.4); Monocytes # (auto) 0.91 K/uL (0.11-0.59); Monocytes % (auto) 6.2 %; Neutrophils # (auto) 11.93 K/uL (1.4-6.5); Neutrophils % (auto) 81.3 %; Platelet Count 282 K/uL (130-400); RDW Coefficient of Variation 13.2 % (11.5-14.5); RDW Standard Deviation 43.3 fL (36.4-46.3); Red Blood Count 3.95 M/uL (4.7-6.1); White Blood Count 14.67 K/uL (4.8-10.8)
[2021-05-30 07:01] LABS: BUN Creatinine Ratio 14.7 (10-20); Calcium 8.9 mg/dl (8.5-10.1); Creatinine Clr Calc Pharmacy 149.4 ml/min; Est GFR (African American) 115.6 ml/min; Est GFR (Non-African American) 99.8 ml/min; Potassium 4.5 mmol/L (3.5-5.1)
--- NOTE | 2021-05-30 08:23 | Orthopedic Progress Note ---
Date of Service May 30, 2021 Assessment & Plan (1) Osteoarthritis of left hip: Plan: Postop day #1 status post left total hip arthroplasty Weight-bear as tolerated left lower extremity. PT/OT today. Hip precautions Radiation/oncology to see patient today for prophylactic treatment for HO. DVT prophylaxisaspirin 81 mg twice daily x4 weeks, ERIKA stockings x4 weeks Discharge planningplan for return back to the [place] [facility] later today after his radiation treatment. The Hemovac will be removed prior to discharge. Admission and Anticipated Discharge Date Admission Date: May 29, 2021 Subjective Doing well. States his pain has been controlled. He has mostly been using the IV pain medication. States has been out of bed and able to ambulate. One of his main concerns is his ride back to the [place] [facility]. Physical Exam Constitutional: WD/WN, vitals as above well developed and well nourished; no acute distress ENMT: external ear and nose normal, oropharynx normal Neck: trachea midline Respiratory: normal respiratory effort, lungs clear to auscultation Cardiovascular: Rate/Rhythm: regular rate and regular rhythm Gastrointestinal (Abdomen): normal bowel sounds, soft, nontender, no hepatosplenomegaly Musculoskeletal: Hip: + surgical incision (Left hip with Prevena dressing in place and functioning), + surgical drain present (Left hip with 180 cc drainage since yesterday) and + limited ROM of hip (left internal/external rotation); no skin erythema and no ecchymosis Skin: no rashes, warm and dry Neurologic: normal touch/pain/proprioception Psychiatric: A+Ox3, euthymic affect Speech: normal rate/rhythm/volume of speech Results & Data ([facility]) Vital Signs (Past 12 Hours) Vital Signs Temp Pulse Resp BP Pulse Ox 05/30/21 05:50 36.7 C 70 18 125/81 96 05/29/21 20:49 36.8 C 85 18 121/87 95 Laboratory Results Laboratory Tests 05/30/21 05/30/21 06:11 06:11 Hgb 11.4 L Hct 35.3 L Sodium 137 Potassium 4.5 Chloride 107 BUN 12 Creatinine 0.83 Diagnostic Findings Postoperative x-rays of the left hip reviewed. There is a well aligned left total hip arthroplasty implant.
--- NOTE | 2021-05-30 08:56 | Electrocardiogram Report ---
Test Reason : Blood Pressure : / mmHG Vent. Rate : 066 BPM Atrial Rate : 066 BPM P-R Int : 216 ms QRS Dur : 090 ms QT Int : 402 ms P-R-T Axes : 052 -11 059 degrees QTc Int : 421 ms Sinus rhythm with 1st degree A-V block Nondiagnostic lateral Q waves Nonspecific T wave abnormality Anterior leads Abnormal ECG When compared with ECG of 04-DEC-2018 09:18, No significant change Confirmed by John Mars ([id number]) on 05/30/2021 8:55:45 AM Referred By: Uriel Varma Confirmed By:John Mars
[2021-05-30] MEDS ORDERED: amLODIPine BESYLATE 5 MG TAB PO SCH (09:00)
[2021-05-30] MEDS ORDERED: ATORVASTATIN 10 MG TAB PO SCH (09:00)
[2021-05-30] MEDS ORDERED: MULTIVITAMIN TAB PO SCH (09:00)
[2021-05-30 09:20] LABS: Estimated Average Glucose 151 mg/dl; Hemoglobin A1C 6.9 % (4.5-5.6)
[2021-05-30] MEDS: SULFAMETHOXAZOLE/TRIMETHOPRIM DS 800/160MG TAB PO SCH (10:12)
[2021-05-30] MEDS: DOCUSATE SODIUM 100 MG CAP PO SCH (10:12)
[2021-05-30] MEDS: CeleBREX 200 MG CAP PO SCH (10:13)
[2021-05-30] MEDS: ASPIRIN 81 MG ECTAB PO SCH (10:13)
[2021-05-30] MEDS: INSULIN ASPART 100 UNITS/ML VIAL SC SCH ×2 (10:28→13:12)
--- NOTE | 2021-05-30 15:17 | Discharge Summary ---
Date of Service May 30, 2021 Admission HPI Per Admitting Provider This is a patient with a long hx of bilateral hip pain treated for osteoarthritis. He has previously had his right hip replaced and has done very well. His left hip has now failed conservative management and is now being set up for CHRISTINE. Principal Diagnosis left hip DJD Discharge Exam Constitutional WD/WN, vitals as above well developed and well nourished; no acute distress ENMT external ear and nose normal, oropharynx normal Neck trachea midline Respiratory normal respiratory effort, lungs clear to auscultation Cardiovascular Rate/Rhythm: regular rate and regular rhythm Gastrointestinal (Abdomen) normal bowel sounds, soft, nontender, no hepatosplenomegaly Musculoskeletal Hip: + surgical incision (Left hip with Prevena dressing in place and functioning), + surgical drain present (Left hip with 180 cc drainage since yesterday) and + limited ROM of hip (left internal/external rotation); no skin erythema and no ecchymosis Skin no rashes, warm and dry Neurologic normal touch/pain/proprioception Psychiatric A+Ox3, euthymic affect Speech: normal rate/rhythm/volume of speech Discharge Data Allergies Allergy/AdvReac Type Severity Reaction Status Date / Time aspirin AdvReac Mild Vomiting Verified 05/29/21 07:07 Consultations 05/29/21 14:43 Consult Internal Medicine Routine Consult Radiation Oncology Routine Procedures Performed Operation Date: 05/29/21 10:05 Actual Procedures p p Left Total Hip Arthroplasty [place] Accolade 2 size #6 femur, 58mm Trident 2 acetabular shell, 10 degree poly liner, 6.5mm screws X2(Left)(Left) - Uriel Varma DO Ordered Studies 05/30/21 09:06 CT guide rad therapy pelvis Routine Hospital Course (1) Osteoarthritis of left hip: Postop day #1 status post left total hip arthroplasty Weight-bear as tolerated left lower extremity. PT/OT today. Hip precautions Radiation/oncology to see patient today for prophylactic treatment for HO. DVT prophylaxisaspirin 81 mg twice daily x4 weeks, ERIKA stockings x4 weeks Discharge planningplan for return back to the longterm later today after his radi ation treatment. The Hemovac will be removed prior to discharge. Total Time Total Time Spent Total Time Spent (In Minutes): 20 Discharge Plan Discharge Items [facility] Reason For Visit: Uniateral Primary Osteoarthritis, Left Hip Discharge Diagnosis: Left total hip arthroplasty Activity: Per Instructions section Non-emergency contact: Surgeon Call non-emergency contact if: your pain is not controlled, your pain is worsening and your temperature is above 101 Follow-up/Referrals: Betsy PHILLIPS [Primary Care Provider] - Diet: Carb Count or DM1 Addtl Attending Provider Instructions: ACTIVITY RECOMMENDATIONS: SELF CARE INSTRUCTIONS AFTER TOTAL HIP REPLACEMENT Until the incision and soft tissues around your hip have healed, there is a possibility that the hip prosthesis could dislocate. A. Observe the following precautions to prevent dislocation: 1. Don't bend your hip greater than 90 degrees. 2. Avoid crossing your legs or ankles while standing or lying. 3. Sit with your feet placed 6 inches apart. 4. When sitting, keep your knees below your hips. Sit on a firm surface, avoid deep, soft chairs and couches. Use an elevated toilet seat in the bathroom. 5. Don't bend over at the waist. Use a long handled shoehorn and a sock aid to help you put on your shoes and socks. A paper cutter can help you picking machine operator helper objects that are too high or too low to reach. 6. Keep car riding to a minimum for at least one month after surgery. B. Your balance may be shaky for a while. Use crutches or a walker until directed by your doctor. C. Use hand rails when walking on stairs. D. Wear low heeled shoes with non-slip soles. E. Be sure that your floors are free of things that could trip you - throw rugs, electrical cords, small objects. Avoid wet and waxed floors, especially with crutches and canes. F. Try to walk several times a day with rest periods between. G. Continue with all the exercises taught to you in the hospital. Again, make walking a part of your daily routine. H. It is okay to shower if minimal to no drainage from incision. No baths. Do not soak wound. I. Physical Therapy as instructed by your Physician. J. Prevena dressing: You have a Prevena dressing on your surgical wound. It will remain in place for 7 days from surgery. You will be provided with a booklet with the do's and don'ts with the dressing in place. After 7 days, the dressing may be removed. If there is drainage from the surgical incision, you may cover the wound with dry dressings SPECIAL CARE INSTRUCTIONS: VERY IMPORTANT TO READ AND REVIEW A. You may still be at risk for phlebitis and blood clots. 1. Wear surgical stockings (ERIKA hose) for one month, 20 hours daily, after surgery to improve circulation and reduce swelling. 2. Take Aspirin (blood thinning medications), as directed by your doctor. 3. Have a pro-time (blood test) drawn according to your doctor's instructions. B. We encourage and will assist you in choosing a home-health agency of your choice. Home health nurses and therapists will monitor your temperature, wound healing and progress in exercise and walking. Home health nurses may also draw the blood for the pro-time test. They may instruct you in decreasing or increasing the amount of Coumadin you take. C. You must take antibiotics before having dental work, bladder, bowel and other surgery. Your doctor will provide you with a permanent card to carry describing precautions. D. Call [facility] if you have a temperature of 101 or greater, redness or swelling around the incision, cloudy drainage from incision, or sudden increase in pain in your hip, not relieved by your regular pain medication. E. Please call the office at if you have any concerns or questions about your operation or recovery. F. The clarence may be removed at the longterm 2 weeks after surgery. We will follow up with the patient 4 weeks postop. FOLLOW UP VISIT: If appointment is not already scheduled: Please call [facility] to make a follow-up appointment for One month after your surgery at . Pending Studies at Discharge: No Skilled Items Patient informed of condition?: Yes DNR: No Discharge Level of Care: Acute rehab Communicable Disease: No Discharge Prognosis: Stable Lines: None Urinary Catheter: No Medications and DC Order Prescriptions: New acetaminophen [Tylenol Extra Strength] 500 mg Tablet 1,000 mg PO Q8 Qty: 100 RF: 0 aspirin 81 mg Tablet,Delayed Release (Dr/Ec) 81 mg PO BID Qty: 60 RF: 0 oxycodone 5 mg Tablet 5 - 10 mg PO Q4H PRN (Reason: pain) Qty: 30 RF: 0 Continued atorvastatin 10 mg Tablet 10 mg PO DAILY RF: 0 amlodipine 10 mg Tablet 10 mg PO DAILY RF: 0 trolamine salicylate 10 % Lotion 1 applic TOPICAL DAILY PRN (Reason: Pain) RF: 0 diclofenac sodium 75 mg Tablet,Delayed Release (Dr/Ec) 75 mg PO BID RF: 0 Lantus Solostar U-100 Insulin 100 unit/mL (3 mL) Insulin Pen 22 unit SUBCUT QPM RF: 0 sulfamethoxazole-trimethoprim [Bactrim DS] 800-160 mg Tablet 1 tab PO BID RF: 0 metformin 1,000 mg Tablet 1,000 mg PO BID RF: 0 Novolin R Regular U-100 Insuln 100 unit/mL Solution 1 sliding scale dose SUBCUT BID RF: 0 Krames/Other Patient Handouts: A1C, Managing Type 2 Diabetes Admission Data Admit Date/Time: 05/29/21 14:00 Attending Provider: Uriel Varma Admit Provider: Choco Rivera Primary Care Provider: Betsy PHILLIPS Other Providers: Dilshad Dunbar ; Leandra Pereira ; Jerry Olson ; Sukumar Knox ; Santiago Jones ; Jaime Guerrero ; Octavio Henderson ; Derrek Amador ; Alyssa Mera ; Evelin Valenzuela ; Yakov Harrington ; Stephenie Rizo ; Lisa Dias ; Ravi Elizalde ; Romulo Stafford ; Felipe Baird ; Leandra Berger ; Reji York ; Axel Kramer ; Julio C Werner ; Jerry Waters ; Kian Del Real ; Tara Stevens ; Alla Vicente ; Mikhail Hernandez ; Stephenie Ventura ; Trenton Martin ; Jorge Ordaz ; Ame Stern ; Lia Reyes ; Oneil Wallace Other Interventions: Discharge Summary Assessment (RN) Last Done: 05/30/21 14:08
== END 2021-05-30 15:30 ==
LOC: PACUINP 06:48 → ASU 06:48 → ASUINP 05-30 09:00
DX: Z68.35 Body mass index [BMI] 35.0-35.9, adult; Z96.612 Presence of left artificial shoulder joint; E78.5 Hyperlipidemia, unspecified; Z29.8 Encounter for other specified prophylactic measures; Z79.899 Other long term (current) drug therapy; K21.9 Gastro-esophageal reflux disease without esophagitis; Z79.4 Long term (current) use of insulin; I10 Essential (primary) hypertension; M16.12 Unilateral primary osteoarthritis, left hip; Z96.641 Presence of right artificial hip joint; Z88.6 Allergy status to analgesic agent; E11.9 Type 2 diabetes mellitus without complications; Z79.84 Long term (current) use of oral hypoglycemic drugs; E66.9 Obesity, unspecified; Z87.891 Personal history of nicotine dependence